=== PATIENT | male | born 1980 | race Two or more races ===

== ENCOUNTER 2019-06-06 22:23 | Emergency (ER) | payer MEDICARE, MEDICAID ==
[~2019-06-06] VITALS: Ht 165.1 cm; Wt 65.8 kg
[2019-06-07] MEDS ORDERED: ONDANSETRON HCL 4 MG/2 ML VIAL IV ONE (00:45)
[2019-06-07] MEDS ORDERED: HYDROmorphone HCL 2 MG/ML VL IV ONE (00:45)
[2019-06-07] MEDS ORDERED: SODIUM CHLORIDE 0.9% 1,000 ML IV ONE (01:45)
[2019-06-07 02:32] VITALS: BP 94/48
== END 2019-06-07 03:00 | disposition home or self-care (01) ==
LOC: EDBD 22:23 → ER 22:25
DX: R51 Headache (principal); I10 Essential (primary) hypertension; Z86.69 Personal history of other diseases of the nervous system and sense organs
CPT/HCPCS: 70450; 96374; 96375; 99284; J1170; J2405; J7030

== ENCOUNTER 2019-09-06 19:19 | Inpatient (IN) | payer MEDICARE, MEDICAID ==
[~2019-09-06] VITALS: Ht 162.6 cm; Wt 77.0 kg
[2019-09-06] MEDS ORDERED: SODIUM CHLORIDE 0.9% 1,000 ML IV ONE ×3 (19:53→23:15)
[2019-09-06] MEDS ORDERED: MORPHINE SULFATE 4 MG/ML SYR/VIAL IV ONE (20:00)
[2019-09-06] MEDS ORDERED: ONDANSETRON HCL 4 MG/2 ML VIAL IV ONE (20:00)
[2019-09-06 20:43] LABS: Urine Bacteria None Seen /hpf (None Seen)
[2019-09-06 20:51] LABS: Eosinophils # (auto) 0 10 ^3/uL (0-0.8); Mean Corpuscular Hemoglobin 34.7 pg (28.0-32.0); Mean Corpuscular Hgb Conc. 33.5 g/dL (32.0-36.0); Monocytes # (auto) 0.4 10 ^3/uL (0-1.3); Neutrophils # (auto) 10.4 10 ^3/uL (1.6-8.6)
[2019-09-06 20:53] LABS: Basophils # (auto) 0 10 ^3/uL (0-0.2); Basophils % (auto) 0.4 % (0.0-2.0); Hematocrit 42.9 % (41.0-53.0); Hemoglobin 14.4 g/dL (13.5-17.5); Lymphocytes # (auto) 0.5 10 ^3/uL (0.4-5.4); Lymphocytes % (auto) 4.3 % (10.0-50.0); Mean Corpuscular Volume 103.6 fL (80.0-100.0); Monocytes % (auto) 3.6 % (0.0-12.0); Neutrophils % (auto) 91.7 % (37.0-80.0); Platelet Count (auto) 439 10^3/uL (140-450); Red Blood Cells 4.14 10^6/uL (4.5-5.90); Red Cell Distribution Width 15.5 % (11.8-14.3); White Blood Cell 11.4 10^3/uL (4.4-10.8)
[2019-09-06 21:04] LABS: INR 1.02 (0.9-1.15); Partial Thromboplastin Time 27.6 sec (23.64-32.05)
[2019-09-06 21:08] LABS: Albumin 3.4 g/dL (3.4-5.0); Calcium 8.9 mg/dL (8.5-10.1); Potassium 3.8 mmol/L (3.5-5.1)
[2019-09-06 21:12] LABS: Bilirubin, Total 0.2 mg/dL (0.2-1.0); Total Protein 8.2 g/dL (6.4-8.2)
[2019-09-06] MEDS ORDERED: LORazepam 2MG/ML-1ML VIAL IV ONE (21:15)
[2019-09-06 21:19] LABS: Urine Blood 4+ /uL (Negative); Urine Specific Gravity 1.018 (1.001-1.035)
[2019-09-06 21:20] LABS: Urine WBC >100 /hpf (0 - 3)
[2019-09-06] MEDS ORDERED: MORPHINE SULF INJ 2 MG/ML SYRINGE 1ML IV ONE (22:30)
[2019-09-06] MEDS ORDERED: cefTRIAXone 1GM/50ML D5W 50 ML IV ONE (22:45)
[2019-09-06] MEDS ORDERED: PIPERACILLIN-TAZOB 3.375GM 100 ML IV ONE (23:15)
[2019-09-06 23:26] LABS: Lactic Acid w/Reflex 2.2 mmol/L (0.4-2.0)
[2019-09-07] MEDS ORDERED: SODIUM CHLORIDE 0.9% 1,000 ML IV SCH (02:10)
[2019-09-07] MEDS ORDERED: ACETAMINOPHEN 325 MG TAB PO PRN (02:15)
[2019-09-07] MEDS ORDERED: ONDANSETRON HCL 4 MG/2 ML VIAL IV PRN (02:15)
[2019-09-07] MEDS ORDERED: ACETAMINOPHEN 500 MG TAB PO PRN (02:15)
[2019-09-07] MEDS ORDERED: MORPHINE SULF INJ 2 MG/ML SYRINGE 1ML IV PRN ×2 (02:15→16:15)
[2019-09-07 03:39] VITALS: BP 94/42
[2019-09-07] MEDS ORDERED: ALBUTEROL SULF HFA 90MCG INH 200DOSE IN SCH (06:00)
[2019-09-07 06:07] VITALS: BP 81/52
--- NOTE | 2019-09-07 07:30 | NUR ---
ASSESSED PT FOR THE NEED OF MDI TX, PT SAYS HE DOES NOT TAKE BREATHING TX AT HOME, PT ON RA WITH SPO2 98%, HR 86, RR 15 WITH DIMINISHED/CLEAR BS NO SOB NOTED, NO DISTRESS NOTED. MDI DC. WILL CONTINUE TO MONITOR PT.
--- NOTE | 2019-09-07 07:44 | NUR ---
MAYCO HOLLAND REGARDING PATIENTS BLOOD PRESSURE OF 81/52. PATIENT ASYMPTOMATIC. AWAITING CALL BACK.
[2019-09-07] MEDS ORDERED: MID10T PO (07:45)
[2019-09-07] MEDS ORDERED: SODIUM CHLORIDE 0.9% 500 ML IV ONE (08:15)
--- NOTE | 2019-09-07 08:16 | NUR ---
SPOKE TO Santiago WHITE REGARDING PATIENT STATUS. INFORMED OF CHIEF COMPLAINT OF BLOOD IN URINE. INFORMED OF LOW BLOOD PRESSURE AND HOME MEDICATIONS. RECEIVED NEW ORDERS. TORB. SEE EMR.
[2019-09-07] MEDS ORDERED: MIDODRINE HCL 10 MG TAB PO ONE ×2 (08:30)
[2019-09-07] MEDS ORDERED: ASCORBIC ACID 1,000 MG TAB PO SCH (10:00)
[2019-09-07] MEDS ORDERED: DOXYCYCLINE 100MG/250ML 250 ML IV SCH (10:00)
[2019-09-07] MEDS ORDERED: ZINC SULFATE 220mg CAP or TAB PO SCH (10:00)
[2019-09-07] MEDS: ENOXAPARIN SOD 40 MG/0.4 ML SYRINGE SC SCH (10:00)
[2019-09-07] MEDS ORDERED: CHOLECALCIFEROL (VITD3) 1,000UNIT=25mCg TAB PO SCH (10:00)
--- NOTE | 2019-09-07 10:21 | NUR ---
PATIENT PLACED ON SCDS FOR DVT PROPHYLAXIS.
[2019-09-07 11:45] LABS: Basophils # (auto) 0 10 ^3/uL (0-0.2); Eosinophils # (auto) 0 10 ^3/uL (0-0.8); Eosinophils % (auto) 0.1 % (0.0-7.0); Monocytes # (auto) 0.6 10 ^3/uL (0-1.3); Neutrophils # (auto) 10.4 10 ^3/uL (1.6-8.6)
[2019-09-07] MEDS ORDERED: ENO30SY SC (11:45)
[2019-09-07] MEDS ORDERED: DOCU-94 PO (11:45)
[2019-09-07] MEDS ORDERED: POM ID (11:45)
[2019-09-07] MEDS ORDERED: TRAM50TA2 PO (11:45)
[2019-09-07 11:48] LABS: Basophils % (auto) 0.3 % (0.0-2.0); Hemoglobin 10.9 g/dL (13.5-17.5); Lymphocytes # (auto) 0.8 10 ^3/uL (0.4-5.4); Lymphocytes % (auto) 6.6 % (10.0-50.0); Mean Corpuscular Hemoglobin 34.1 pg (28.0-32.0); Mean Corpuscular Hgb Conc. 32.9 g/dL (32.0-36.0); Mean Corpuscular Volume 103.8 fL (80.0-100.0); Monocytes % (auto) 5.2 % (0.0-12.0); Neutrophils % (auto) 87.8 % (37.0-80.0); Platelet Count (auto) 330 10^3/uL (140-450); Red Blood Cells 3.18 10^6/uL (4.5-5.90); Red Cell Distribution Width 15.5 % (11.8-14.3); White Blood Cell 11.8 10^3/uL (4.4-10.8)
--- NOTE | 2019-09-07 11:56 | NUR ---
MAYCO LOUISE REGARDING DOXYCYCLINE.
[2019-09-07] MEDS: MIDODRINE HCL 10 MG TAB PO SCH ×2 (12:00→18:37)
[2019-09-07 12:06] LABS: Calcium 7.9 mg/dL (8.5-10.1); Potassium 3.7 mmol/L (3.5-5.1)
[2019-09-07 12:09] LABS: BUN/Creatinine Ratio 27.7
[2019-09-07 13:00] VITALS: BP 96/52
--- NOTE | 2019-09-07 14:55 | NUR ---
CLEAR YELLOW URINE EMPTIED FROM EARL CATHETER. 750ML.
--- NOTE | 2019-09-07 15:01 | NUR ---
MEATAL CARE PROVIDED WITH KIKA BLANCO AT BEDSIDE.
--- NOTE | 2019-09-07 15:38 | NUR ---
PATIENT TRANSPORTED TO ROOM 250B. PATIENT IN NO S/S OF DISTRESS. REPORT GIVEN TO KIKA STEELE.
--- NOTE | 2019-09-07 16:00 | NUR ---
Assumed care of patient, awake and alert. No S/S of distress/SOB or pain. Instructed on POC and to call for assist PRN, will continue to monitor for changes Q1hr and PRN.
[2019-09-07] MEDS ORDERED: cefTRIAXone 1GM/50ML D5W 50 ML IV ONE (16:15)
[2019-09-07 16:28] VITALS: BP 87/45
[2019-09-07] MEDS: SODIUM CHLORIDE 0.9% 1,000 ML IV SCH (18:38)
--- NOTE | 2019-09-07 19:30 | NUR ---
Opening Shift Note Assumed care of patient, awake and alert. No S/S of distress/SOB or pain. Mom coming in "for a few hours." Both pt and his mom insructed on POC and to call for assist PRN. RN will continue to monitor for changes Q1hr and PRN. Pt stating repeatedly that PIV in L AC irritating him. Pt rubbing over area proximal to insertion site. RN instructed pt and his mom that he should not do this as will irritate site and poss cause malfunction/dislodgment. Both VU. Bed low, call light at pt's side.
--- NOTE | 2019-09-07 19:59 | NUR ---
CARE ENDORSED TO KIKA CORTEZ. PT RESTING IN BED. DENIES PAIN OR SOB. VERBALIZED COMFORT.
[2019-09-07 21:17] VITALS: BP 102/53
[2019-09-07] MEDS: HYDROcodone-ACET 5/325MG TAB PO PRN (21:25)
--- NOTE | 2019-09-07 21:45 | NUR ---
Pt's mom leaving now repeatedly c/o pt's PIV needing to be discontinued and replaced as bleeding and 'leaking fluid.' Stopped at nurses' station to report she believes pt is allergic to tape over PIV site because he is allergic to 'some tapes.' This RN reassured pt's mom that no redness or rash appeared at site at beginning of shift. Reassured her team will take good care of her son and this RN will assess the PIV site and decide what to do.
--- NOTE | 2019-09-07 23:45 | NUR ---
PIV dc'd at LAC as leaking fluid and scant blood when flushed. IV cath removed in entirety; pt gold. well. Cath bent sharply at 90 degree angle. 22g cath used to start PIV in L posterior hand on 1st attempt. Pt apologizing for rubbing prev site. Now counting 1,2 over and over after RN asked if he needed someone to come in and hold his hand. Much praise awarded pt for his bravery and help by not moving. Pt repeatedly thanking RN.
[2019-09-08 04:43] VITALS: BP 94/54
[2019-09-08 05:43] LABS: Basophils # (auto) 0 10 ^3/uL (0-0.2); Eosinophils # (auto) 0.1 10 ^3/uL (0-0.8); Monocytes # (auto) 0.5 10 ^3/uL (0-1.3)
[2019-09-08 05:46] LABS: Basophils % (auto) 0.5 % (0.0-2.0); Hematocrit 32.4 % (41.0-53.0); Lymphocytes % (auto) 15.1 % (10.0-50.0); Mean Corpuscular Hemoglobin 35.1 pg (28.0-32.0); Mean Corpuscular Hgb Conc. 33.9 g/dL (32.0-36.0); Mean Corpuscular Volume 103.5 fL (80.0-100.0); Monocytes % (auto) 8.1 % (0.0-12.0); Neutrophils # (auto) 4.9 10 ^3/uL (1.6-8.6); Neutrophils % (auto) 75.3 % (37.0-80.0); Platelet Count (auto) 320 10^3/uL (140-450); Red Blood Cells 3.13 10^6/uL (4.5-5.90); Red Cell Distribution Width 15.6 % (11.8-14.3); White Blood Cell 6.5 10^3/uL (4.4-10.8)
[2019-09-08] MEDS: MIDODRINE HCL 10 MG TAB PO SCH ×3 (06:00→18:54)
[2019-09-08] MEDS: SODIUM CHLORIDE 0.9% 1,000 ML IV SCH ×2 (06:04→18:55)
[2019-09-08 06:08] LABS: Potassium 3.7 mmol/L (3.5-5.1)
[2019-09-08 06:20] LABS: Albumin 2.7 g/dL (3.4-5.0); BUN/Creatinine Ratio 24.6; Bilirubin, Total 0.3 mg/dL (0.2-1.0); Calcium 8.1 mg/dL (8.5-10.1); Total Protein 6.6 g/dL (6.4-8.2)
--- NOTE | 2019-09-08 07:25 | NUR ---
opening shift note assumed care of patient from NOC KIKA Mccallum. Patient is AOx4, no signs and symptoms of distress noted at this time. Bed is in lowest locked position, side rails up x3, and call light within reach. Updated patient on plan of care and patient verbalized understanding. I will continue to monitor q1hr and PRN.
[2019-09-08 09:00] VITALS: BP 91/51
[2019-09-08] MEDS: cefTRIAXone 1GM/50ML D5W 50 ML IV SCH (11:10)
[2019-09-08] MEDS: ENOXAPARIN SOD 40 MG/0.4 ML SYRINGE SC SCH (11:11)
[2019-09-08 12:39] VITALS: BP 101/65
[2019-09-08] MEDS: HYDROcodone-ACET 5/325MG TAB PO PRN (13:36)
[2019-09-08] MEDS: DOCUSATE SOD 100 MG CAP PO PRN (15:32)
--- NOTE | 2019-09-08 16:00 | NUR ---
Linen change Provided patient with bed bath and linen change. Patient tolerated well, no signs and symptoms of distress noted.
[2019-09-08 16:26] VITALS: BP 102/60
--- NOTE | 2019-09-08 19:25 | NUR ---
End of shift note Endorsed care to NOC KIKA Betts. No s/s of distress noted at this time.
--- NOTE | 2019-09-08 19:40 | NUR ---
Opening Shift Note Assumed care of patient, awake, AAOx4. Mother at bedside. No S/S of distress/SOB. On room air and bedbound. Bed in lowest locked position, side rails up x2, call light within reach. Instructed on POC and to call for assist PRN, will continue to monitor for changes Q1hr and PRN.
[2019-09-08 22:00] VITALS: BP 102/61
[2019-09-09 05:00] VITALS: BP 121/75
[2019-09-09] MEDS: MIDODRINE HCL 10 MG TAB PO SCH ×2 (05:35→13:08)
[2019-09-09 06:12] LABS: Basophils # (auto) 0 10 ^3/uL (0-0.2); Eosinophils # (auto) 0.1 10 ^3/uL (0-0.8); Eosinophils % (auto) 1.5 % (0.0-7.0); Hematocrit 33.5 % (41.0-53.0); Hemoglobin 11.6 g/dL (13.5-17.5); Lymphocytes % (auto) 22.3 % (10.0-50.0); Mean Corpuscular Hemoglobin 35.5 pg (28.0-32.0); Mean Corpuscular Hgb Conc. 34.5 g/dL (32.0-36.0); Mean Corpuscular Volume 102.8 fL (80.0-100.0); Monocytes # (auto) 0.5 10 ^3/uL (0-1.3); Monocytes % (auto) 10.5 % (0.0-12.0); Neutrophils # (auto) 2.9 10 ^3/uL (1.6-8.6); Neutrophils % (auto) 64.7 % (37.0-80.0); Nucleated Red Blood Cells % 0.1 %; Platelet Count (auto) 353 10^3/uL (140-450); Red Blood Cells 3.26 10^6/uL (4.5-5.90); Red Cell Distribution Width 15.5 % (11.8-14.3); White Blood Cell 4.5 10^3/uL (4.4-10.8)
--- NOTE | 2019-09-09 07:35 | NUR ---
opening shift note assumed care of patient from NOC RN Roxane Patient is AOx4, no signs and symptoms of distress noted at this time. Bed is in lowest locked position, side rails up x3, and call light within reach. Updated patient on plan of care and patient verbalized understanding. I will continue to monitor q1hr and PRN.
[2019-09-09 08:30] VITALS: BP 110/74
[2019-09-09] MEDS: cefTRIAXone 1GM/50ML D5W 50 ML IV SCH (09:54)
[2019-09-09] MEDS: SODIUM CHLORIDE 0.9% 1,000 ML IV SCH (10:09)
--- NOTE | 2019-09-09 11:15 | NUR ---
Physician rounding Dr. Gomes at bed side, updated her on patient status. New orders received, I will follow through.
[2019-09-09] MEDS ORDERED: LACTULOSE 20Gm/30ML SOLN PO ONE (12:15)
[2019-09-09 12:30] VITALS: BP 117/71
[2019-09-09] MEDS: DOCUSATE SOD 100 MG CAP PO PRN (13:09)
[2019-09-09] MEDS: ENOXAPARIN SOD 40 MG/0.4 ML SYRINGE SC SCH (13:10)
[2019-09-09] MEDS ORDERED: LEVO500T21 PO (14:44)
[2019-09-09 16:16] VITALS: BP 115/71
--- NOTE | 2019-09-09 16:30 | NUR ---
Assessment Patient is a 39-year-old male with mental disorder. Assessment was completed with patient mother Xena ). Per Xena patient has down syndrome and is disable. Per Xena prior to admission patient lived with her and functioned with assistance. Per Xena patient has a hospital bed and wheelchair for home used. Per Xena she helps patient with his ADLs. Per Xena patient will return home to his prior living arrangements post discharge and [facility] transportation needs to be arranged. Advised Xena there is a social service consult to resume service with home health agency. Per Xena patient is on service with [facility]. Informed Xena clinical information will be faxed to agency. Informed Xena she has the right to participate in all discharge planning. Xena verbalized understanding and agreed to discharge plan. Per Pastora with [facility] ) they will resume service within 24 upon d/c day. Faxed transportation form request to [facility] requesting for transportation to be arranged between 16:30-17:00 via [employer]. Received a follow up call from Sonam with [facility] advising me [email or web address] transportation [phone] will be transporting patient home between 18:00-20:00 via [employer]. Informed KIKA Copeland. Addendum: 09/09/19 at 1642 by TEJ MARI Amended: Links added.
[2019-09-09 17:08] VITALS: BP 153/73
--- NOTE | 2019-09-09 17:45 | NUR ---
discharge note Discharge instructions given as ordered. Encourage to follow up with PMD as instructed. All questions and concerns addressed. Patient verbalized understanding. IV removed with catheter intact, and pressure dressing applied. Telemetry unit returned to ICU. Patient taken via [employer] with all personal belongings, accompanied by family member. No distress noted at time of departure.
== END 2019-09-09 17:45 | disposition home health service (06) | DRG 698 ==
LOC: EDBD 19:19 → EDUNIT# 19:19 → ER 19:20 → TELE 19:21 → TELE-EAST 09-07 06:47
PROVIDERS: ADMIT Hospitalist; ATTEND Internal Medicine
DX: T83.091A Other mechanical complication of indwelling urethral catheter, initial encounter (principal); A41.9 Sepsis, unspecified organism; N39.0 Urinary tract infection, site not specified; G82.20 Paraplegia, unspecified; R33.9 Retention of urine, unspecified; E86.0 Dehydration; R31.0 Gross hematuria; I10 Essential (primary) hypertension; K56.41 Fecal impaction; K80.20 Calculus of gallbladder without cholecystitis without obstruction; N31.9 Neuromuscular dysfunction of bladder, unspecified; Q90.9 Down syndrome, unspecified; Z03.818 Encounter for observation for suspected exposure to other biological agents ruled out; Z82.49 Family history of ischemic heart disease and other diseases of the circulatory system; Z82.79 Family history of other congenital malformations, deformations and chromosomal abnormalities; Z85.47 Personal history of malignant neoplasm of testis; Z79.899 Other long term (current) drug therapy; Y84.6 Urinary catheterization as the cause of abnormal reaction of the patient, or of later complication, without mention of misadventure at the time of the procedure; Y92.89 Other specified places as the place of occurrence of the external cause; I95.9 Hypotension, unspecified
CPT/HCPCS: 36415; 71250; 74176; 80048; 80053; 81001; 82728; 83605; 83690; 83735; 84443; 85025; 85610; 85730; 87040; 87070; 87086; 87804; 87880; 93005; G0378; J0696; J2405; J2543

== ENCOUNTER 2020-08-08 23:21 | Emergency (ER) | payer MEDICARE, MEDICAID ==
[~2020-08-08] VITALS: Ht 165.1 cm; Wt 81.6 kg
[~2020-08-08 23:21] MED LIST: DOCU-94 PO; ENO30SY SC; LEVO500T31 PO; MID10T PO; POM ID; TRAM50TA2 PO
[2020-08-09 00:31] LABS: Basophils # (auto) 0.1 10 ^3/uL (0-0.2); Neutrophils # (auto) 3.1 10 ^3/uL (1.6-8.6)
[2020-08-09 00:33] LABS: Basophils % (auto) 1.3 % (0.0-2.0); Eosinophils # (auto) 0 10 ^3/uL (0-0.8); Eosinophils % (auto) 0.4 % (0.0-7.0); Hematocrit 38.9 % (41.0-53.0); Hemoglobin 13.7 g/dL (13.5-17.5); Lymphocytes # (auto) 1.4 10 ^3/uL (0.4-5.4); Mean Corpuscular Hemoglobin 35.8 pg (28.0-32.0); Mean Corpuscular Hgb Conc. 35.3 g/dL (32.0-36.0); Mean Corpuscular Volume 101.4 fL (80.0-100.0); Monocytes # (auto) 0.5 10 ^3/uL (0-1.3); Monocytes % (auto) 10.4 % (0.0-12.0); Neutrophils % (auto) 59.9 % (37.0-80.0); Red Blood Cells 3.83 10^6/uL (4.5-5.90); Red Cell Distribution Width 14.5 % (11.8-14.3); White Blood Cell 5.2 10^3/uL (4.4-10.8)
[2020-08-09 00:57] LABS: Albumin 3.4 g/dL (3.4-5.0); Anion Gap 8 (5-15); BUN/Creatinine Ratio 24.1; Blood Urea Nitrogen 20 mg/dL (7-18); Calcium 8.8 mg/dL (8.5-10.1); Carbon Dioxide 28 mmol/L (21-32); Chloride 103 mmol/L (98-107); GFR African American 133 mL/min; GFR Non-African American 110 mL/min; Glucose 103 mg/dL (74-106); Potassium 4.4 mmol/L (3.5-5.1); Sodium 139 mmol/L (136-145)
[2020-08-09] MEDS ORDERED: SODIUM CHLORIDE 0.9% 1,000 ML IV ONE ×2 (01:00→02:15)
[2020-08-09 01:02] LABS: Alanine Aminotransferase 48 U/L (16-61); Alkaline Phosphatase 95 U/L (45-117); Aspartate Aminotransferase 19 U/L (15-37); Bilirubin, Total 0.2 mg/dL (0.2-1.0); Total Protein 7.7 g/dL (6.4-8.2)
[2020-08-09 02:31] LABS: Urine Bacteria FEW /hpf (None Seen); Urine Blood Negative /uL (Negative); Urine Mucus FEW (None Seen); Urine Specific Gravity 1.018 (1.001-1.035); Urine WBC 63 /hpf (0 - 3)
[2020-08-09] MEDS ORDERED: SODIUM CHLORIDE 0.9% 500 ML IV ONE (04:00)
[2020-08-09] MEDS ORDERED: CIPROFLOXACIN 400MG/200ML 200 ML IV ONE (04:00)
[2020-08-09] MEDS ORDERED: NOREPINEPHRINE 8 MG/250ML KIT 250 ML IV SCH (04:00)
[2020-08-09] MEDS ORDERED: ACETAMINOPHEN 325 MG TAB PO ONE (05:45)
[2020-08-09 11:01] VITALS: BP 94/53
== END 2020-08-09 06:00 | disposition home or self-care (01) ==
LOC: EDBD 23:21 → EDSEX 23:21 → ER 23:22
DX: R07.9 Chest pain, unspecified (principal); N39.0 Urinary tract infection, site not specified; R00.1 Bradycardia, unspecified; I10 Essential (primary) hypertension; Z79.899 Other long term (current) drug therapy
CPT/HCPCS: 36415; 71045; 80053; 81001; 83605; 83880; 84484; 85025; 93005; 96361; 96365; 99285; J0744; J7030

== ENCOUNTER 2021-09-24 09:05 | Inpatient (IN) | payer MEDICARE, MEDICAID ==
[~2021-09-24] VITALS: Ht 160 cm; Wt 78.0 kg
[2021-09-24 10:24] LABS: Eosinophils # (auto) 0 10 ^3/uL (0-0.8); Mean Corpuscular Volume 104.3 fL (80.0-100.0); Neutrophils # (auto) 4.6 10 ^3/uL (1.6-8.6)
[2021-09-24 10:25] LABS: Basophils # (auto) 0.1 10 ^3/uL (0-0.2); Basophils % (auto) 0.8 % (0.0-2.0); Eosinophils % (auto) 0.3 % (0.0-7.0); Hematocrit 37.7 % (41.0-53.0); Hemoglobin 12.5 g/dL (13.5-17.5); Lymphocytes # (auto) 1.4 10 ^3/uL (0.4-5.4); Lymphocytes % (auto) 22.1 % (10.0-50.0); Mean Corpuscular Hemoglobin 34.7 pg (28.0-32.0); Mean Corpuscular Hgb Conc. 33.2 g/dL (32.0-36.0); Monocytes # (auto) 0.4 10 ^3/uL (0-1.3); Monocytes % (auto) 5.5 % (0.0-12.0); Neutrophils % (auto) 71.3 % (37.0-80.0); Nucleated Red Blood Cells % 0.1 %; Red Blood Cells 3.61 10^6/uL (4.5-5.90); Red Cell Distribution Width 14.7 % (11.8-14.3); White Blood Cell 6.4 10^3/uL (4.4-10.8)
[2021-09-24 10:38] LABS: Albumin 3.4 g/dL (3.4-5.0); BUN/Creatinine Ratio 23.3; Calcium 8.9 mg/dL (8.5-10.1); INR 1.01 (0.9-1.15); Partial Thromboplastin Time 33.4 sec (23.6-33.0); Potassium 3.7 mmol/L (3.5-5.1)
[2021-09-24 10:40] LABS: Bilirubin, Total 0.3 mg/dL (0.2-1.0); Total Protein 7.4 g/dL (6.4-8.2)
[2021-09-24] MEDS ORDERED: DEXTROSE (50%) 50ML SYRG IV PRN (14:45)
[2021-09-24] MEDS ORDERED: NITROGLYCERIN 0.4 MG SL TAB SL PRN (14:45)
[2021-09-24] MEDS ORDERED: D5W/LACTATED RINGERS 1,000 ML IV ONE (14:45)
[2021-09-24] MEDS ORDERED: PANTOPRAZOLE 40 MG/10 ML VIAL INJ IV ONE (14:45)
[2021-09-24] MEDS ORDERED: MORPHINE SULFATE INJ 2 MG/ml SYRG IV PRN (14:45)
[2021-09-24] MEDS ORDERED: ONDANSETRON HCL 4 MG/2 ML VIAL IV PRN (14:45)
[2021-09-24 14:57] LABS: Urine Bacteria FEW /hpf (None Seen); Urine Blood 3+ /uL (Negative); Urine WBC 1583 /hpf (0 - 3)
[2021-09-24] MEDS ORDERED: SODIUM CHLORIDE 0.9% 500 ML IV ONE (15:30)
[2021-09-24] MEDS: ACETAMINOPHEN 325 MG TAB PO PRN ×2 (15:41→16:54)
[2021-09-24 18:31] LABS: Folate (Folic Acid) 23.25 ng/mL (5.38-24)
[2021-09-24] MEDS: InsuLIN REG 1unit/0.01ml Soln (100units/ml) SC SCH (19:45)
[2021-09-24] MEDS: ACCU-CHEK COMFORT CURVE STRIP VI SCH (19:45)
[2021-09-24] MEDS: HYDROcodone-ACET 5/325MG TAB PO PRN (21:32)
[2021-09-24] MEDS: SODIUM CHLOR 0.9% PF (SALINE LOCK) 10ML VIAL/SYR IV SCH (22:11)
[2021-09-25] MEDS: ACETAMINOPHEN 325 MG TAB PO PRN ×3 (00:38→21:01)
[2021-09-25 05:32] VITALS: BP 67/29
[2021-09-25] MEDS ORDERED: SODIUM CHLORIDE 0.9% 500 ML IV ONE (05:45)
[2021-09-25] MEDS: InsuLIN REG 1unit/0.01ml Soln (100units/ml) SC SCH ×4 (06:00→17:32)
[2021-09-25] MEDS: SODIUM CHLOR 0.9% PF (SALINE LOCK) 10ML VIAL/SYR IV SCH ×2 (06:43→13:30)
[2021-09-25] MEDS: ACCU-CHEK COMFORT CURVE STRIP VI SCH ×4 (06:48→17:30)
[2021-09-25 07:51] LABS: Basophils # (auto) 0 10 ^3/uL (0-0.2); Eosinophils # (auto) 0 10 ^3/uL (0-0.8); Eosinophils % (auto) 0.1 % (0.0-7.0); Lymphocytes # (auto) 0.8 10 ^3/uL (0.4-5.4); Monocytes # (auto) 0.4 10 ^3/uL (0-1.3)
[2021-09-25 07:54] LABS: Basophils % (auto) 0.2 % (0.0-2.0); Hematocrit 30.4 % (41.0-53.0); Hemoglobin 10.4 g/dL (13.5-17.5); Lymphocytes % (auto) 8.9 % (10.0-50.0); Mean Corpuscular Hemoglobin 35.4 pg (28.0-32.0); Mean Corpuscular Hgb Conc. 34.3 g/dL (32.0-36.0); Mean Corpuscular Volume 103.3 fL (80.0-100.0); Neutrophils # (auto) 7.3 10 ^3/uL (1.6-8.6); Neutrophils % (auto) 85.8 % (37.0-80.0); Nucleated Red Blood Cells % 0.1 %; Red Blood Cells 2.95 10^6/uL (4.5-5.90); Red Cell Distribution Width 14.7 % (11.8-14.3); White Blood Cell 8.5 10^3/uL (4.4-10.8)
[2021-09-25 07:55] VITALS: BP 83/30
[2021-09-25 07:57] LABS: Calcium 8.2 mg/dL (8.5-10.1); Potassium 5.1 mmol/L (3.5-5.1)
[2021-09-25 08:30] VITALS: BP 83/30
[2021-09-25] MEDS ORDERED: ACET300T2 PO (08:39)
[2021-09-25] MEDS ORDERED: MIDO10TA2 PO (08:39)
[2021-09-25] MEDS ORDERED: [UNRECOGNIZED DRUG - CODE] EX (08:39)
[2021-09-25] MEDS ORDERED: ACET-1156 PO (08:39)
[2021-09-25] MEDS ORDERED: ENO100SY SC (08:39)
[2021-09-25] MEDS ORDERED: PANT40TA2 PO (08:39)
[2021-09-25] MEDS ORDERED: DOCU250C4 PO (08:39)
[2021-09-25] MEDS ORDERED: SODIUM CHLORIDE 0.9% 1,000 ML IV ONE (11:30)
[2021-09-25] MEDS ORDERED: cefTRIAXone 1GM/50ML D5W 50 ML IV ONE (11:30)
[2021-09-25 12:05] VITALS: BP_SYST 174; BP_SYST 69; BP_DIAS 41; BP_DIAS 87
[2021-09-25] MEDS: SODIUM CHLORIDE 0.9% 1,000 ML IV SCH (14:00)
[2021-09-25 14:13] LABS: Hemoglobin 9.3 g/dL (13.5-17.5)
[2021-09-25 14:16] LABS: Hematocrit 27.8 % (41.0-53.0)
[2021-09-25 16:23] VITALS: BP 85/49
[2021-09-25] MEDS: HYDROcodone-ACET 5/325MG TAB PO PRN (17:10)
[2021-09-25] MEDS: DOCUSATE SOD 100 MG CAP PO PRN (21:00)
[2021-09-25 22:00] VITALS: BP 71/39
[2021-09-26] MEDS: SODIUM CHLORIDE 0.9% 1,000 ML IV SCH ×5 (03:05→20:06)
[2021-09-26] MEDS: SODIUM CHLOR 0.9% PF (SALINE LOCK) 10ML VIAL/SYR IV SCH ×4 (05:37→21:20)
[2021-09-26] MEDS: InsuLIN REG 1unit/0.01ml Soln (100units/ml) SC SCH ×4 (05:59→18:00)
[2021-09-26] MEDS: ACCU-CHEK COMFORT CURVE STRIP VI SCH ×4 (05:59→19:03)
[2021-09-26 06:13] LABS: Basophils # (auto) 0 10 ^3/uL (0-0.2); Basophils % (auto) 0.5 % (0.0-2.0); Eosinophils # (auto) 0 10 ^3/uL (0-0.8); Eosinophils % (auto) 0.3 % (0.0-7.0); Hemoglobin 8.6 g/dL (13.5-17.5); Monocytes # (auto) 0.4 10 ^3/uL (0-1.3)
[2021-09-26 06:15] LABS: Hematocrit 25.7 % (41.0-53.0); Lymphocytes % (auto) 13.8 % (10.0-50.0); Mean Corpuscular Hemoglobin 34.6 pg (28.0-32.0); Mean Corpuscular Hgb Conc. 33.5 g/dL (32.0-36.0); Mean Corpuscular Volume 103.3 fL (80.0-100.0); Monocytes % (auto) 5.8 % (0.0-12.0); Neutrophils # (auto) 5.6 10 ^3/uL (1.6-8.6); Neutrophils % (auto) 79.6 % (37.0-80.0); Red Blood Cells 2.49 10^6/uL (4.5-5.90); Red Cell Distribution Width 14.6 % (11.8-14.3)
[2021-09-26 06:33] LABS: Chloride 112 mmol/L (98-107); Potassium 4.2 mmol/L (3.5-5.1); Sodium 141 mmol/L (136-145)
[2021-09-26 06:45] LABS: Alanine Aminotransferase 32 U/L (16-61); Albumin 2.6 g/dL (3.4-5.0); Alkaline Phosphatase 68 U/L (45-117); Anion Gap 5 (5-15); Aspartate Aminotransferase 15 U/L (15-37); BUN/Creatinine Ratio 20.8; Bilirubin, Total < 0.1 mg/dL (0.2-1.0); Blood Urea Nitrogen 11 mg/dL (7-18); Calcium 7.7 mg/dL (8.5-10.1); Carbon Dioxide 24 mmol/L (21-32); GFR African American 221 mL/min; GFR Non-African American 183 mL/min; Glucose 100 mg/dL (74-106); Total Protein 6.2 g/dL (6.4-8.2)
[2021-09-26 06:51] LABS: INR 1.05 (0.9-1.15); Partial Thromboplastin Time 27.8 sec (23.6-33.0)
[2021-09-26 08:05] VITALS: BP 85/48
[2021-09-26] MEDS: cefTRIAXone 1GM/50ML D5W 50 ML IV SCH (11:26)
[2021-09-26 12:05] VITALS: BP 75/41
[2021-09-26] MEDS: ACETAMINOPHEN 325 MG TAB PO PRN ×2 (15:13→21:20)
[2021-09-26 16:00] VITALS: BP 74/40
[2021-09-26] MEDS ORDERED: MIDODRINE HCL 10 MG TAB PO ONE (19:45)
[2021-09-26] MEDS: DOCUSATE SOD 100 MG CAP PO PRN (21:21)
[2021-09-26 22:00] VITALS: BP 72/35
[2021-09-27] MEDS: SODIUM CHLORIDE 0.9% 1,000 ML IV SCH ×3 (02:36→19:41)
[2021-09-27 05:00] VITALS: BP 160/66
[2021-09-27 05:19] LABS: Basophils # (auto) 0 10 ^3/uL (0-0.2); Basophils % (auto) 0.9 % (0.0-2.0); Eosinophils # (auto) 0.1 10 ^3/uL (0-0.8); Lymphocytes # (auto) 1.3 10 ^3/uL (0.4-5.4); Lymphocytes % (auto) 24.7 % (10.0-50.0); Monocytes # (auto) 0.4 10 ^3/uL (0-1.3); Neutrophils # (auto) 3.5 10 ^3/uL (1.6-8.6); Red Cell Distribution Width 14.5 % (11.8-14.3); White Blood Cell 5.4 10^3/uL (4.4-10.8)
[2021-09-27 05:22] LABS: Eosinophils % (auto) 2.1 % (0.0-7.0); Hematocrit 23.7 % (41.0-53.0); Hemoglobin 7.9 g/dL (13.5-17.5); Mean Corpuscular Hemoglobin 34.5 pg (28.0-32.0); Mean Corpuscular Hgb Conc. 33.5 g/dL (32.0-36.0); Mean Corpuscular Volume 102.8 fL (80.0-100.0); Monocytes % (auto) 7.8 % (0.0-12.0); Neutrophils % (auto) 64.5 % (37.0-80.0); Nucleated Red Blood Cells % 0.1 %
[2021-09-27] MEDS: MIDODRINE HCL 10 MG TAB PO SCH ×3 (05:47→18:00)
[2021-09-27] MEDS: SODIUM CHLOR 0.9% PF (SALINE LOCK) 10ML VIAL/SYR IV SCH ×3 (05:47→22:12)
[2021-09-27 09:00] VITALS: BP 117/56
[2021-09-27] MEDS: cefTRIAXone 1GM/50ML D5W 50 ML IV SCH (10:38)
[2021-09-27] MEDS ORDERED: BISA10SU52 PR (11:02)
[2021-09-27 13:00] VITALS: BP 92/50
[2021-09-27] MEDS: ACETAMINOPHEN 325 MG TAB PO PRN (15:24)
[2021-09-27] MEDS ORDERED: GLYCOPYRROLATE 0.2 MG/ML 1ML VIAL IV ONE (15:54)
[2021-09-27] MEDS ORDERED: ePHEDrine SULFATE 50 MG/ML AMP IV ONE (15:54)
[2021-09-27] MEDS ORDERED: fentaNYL CITRATE 100 MCG/2 ML VL ONE (16:39)
[2021-09-27] MEDS ORDERED: MIDAZOLAM HCL 2MG/2ML 2ml VIAL (1mg/ml) ONE (16:39)
[2021-09-27] MEDS ORDERED: LIDOCAINE 1%-Mpf/Epinephrine 1:200,000 ONE (16:41)
[2021-09-27] MEDS ORDERED: DexAMETHasone SOD PHOS 10MG/1ML VIAL INJ ONE (16:59)
[2021-09-27] MEDS ORDERED: LABETALOL HCL 5 MG/ML 4ML SYRINGE IV PRN (17:00)
[2021-09-27] MEDS ORDERED: MIDAZOLAM HCL 2MG/2ML 2ml VIAL (1mg/ml) IV PRN (17:00)
[2021-09-27] MEDS ORDERED: ONDANSETRON HCL 4 MG/2 ML VIAL IV PRN (17:00)
[2021-09-27] MEDS ORDERED: ePHEDrine SULFATE 50 MG/ML AMP IV PRN (17:00)
[2021-09-27] MEDS ORDERED: MORPHINE SULFATE 4 MG/ML SYR/VIAL IV PRN (17:00)
[2021-09-27] MEDS ORDERED: PROPOFOL 10 MG/ML 20 ML IV ONE (18:36)
[2021-09-27 21:50] VITALS: BP 100/44
[2021-09-27] MEDS: DOCUSATE SOD 100 MG CAP PO PRN (23:28)
[2021-09-28] MEDS: SODIUM CHLORIDE 0.9% 1,000 ML IV SCH ×3 (01:55→15:05)
[2021-09-28 04:50] VITALS: BP 89/47
[2021-09-28] MEDS: SODIUM CHLOR 0.9% PF (SALINE LOCK) 10ML VIAL/SYR IV SCH ×2 (05:01→13:19)
[2021-09-28] MEDS: MIDODRINE HCL 10 MG TAB PO SCH ×3 (05:01→17:29)
[2021-09-28 05:32] VITALS: BP 93/45
[2021-09-28 06:41] LABS: Basophils # (auto) 0 10 ^3/uL (0-0.2); Eosinophils # (auto) 0 10 ^3/uL (0-0.8); Lymphocytes # (auto) 0.6 10 ^3/uL (0.4-5.4); Monocytes # (auto) 0.1 10 ^3/uL (0-1.3); Nucleated Red Blood Cells % 0.1 %; Red Blood Cells 2.33 10^6/uL (4.5-5.90); Red Cell Distribution Width 14.6 % (11.8-14.3); White Blood Cell 7.4 10^3/uL (4.4-10.8)
[2021-09-28 06:45] LABS: Hematocrit 23.8 % (41.0-53.0); Hemoglobin 8.2 g/dL (13.5-17.5); Lymphocytes % (auto) 8.4 % (10.0-50.0); Mean Corpuscular Hemoglobin 35.3 pg (28.0-32.0); Mean Corpuscular Hgb Conc. 34.4 g/dL (32.0-36.0); Mean Corpuscular Volume 102.5 fL (80.0-100.0); Monocytes % (auto) 1.2 % (0.0-12.0); Neutrophils # (auto) 6.7 10 ^3/uL (1.6-8.6); Neutrophils % (auto) 90.4 % (37.0-80.0)
[2021-09-28 08:36] VITALS: BP 98/52
[2021-09-28] MEDS: cefTRIAXone 1GM/50ML D5W 50 ML IV SCH (09:48)
[2021-09-28 13:00] VITALS: BP_SYST 102; BP_SYST 98; BP_DIAS 50; BP_DIAS 52
[2021-09-28 16:35] VITALS: BP 101/57
[2021-09-28] MEDS: ACETAMINOPHEN 325 MG TAB PO PRN (17:34)
== END 2021-09-28 18:57 | disposition home health service (06) | DRG 669 ==
LOC: ER 09:05 → EDBD 09:05 → TELE 14:49 → TELE-WESTW 09-25 05:05
PROVIDERS: ADMIT Internal Medicine; ATTEND Family Medicine
PROC: 0TBB8ZZ Excision of Bladder, Via Natural or Artificial Opening Endoscopic (ICD-10-PCS; 2021-09-27)
PROC: 0T9B30Z Drainage of Bladder with Drainage Device, Percutaneous Approach (ICD-10-PCS; 2021-09-27)
PROC: 0TCB8ZZ Extirpation of Matter from Bladder, Via Natural or Artificial Opening Endoscopic (ICD-10-PCS; principal; 2021-09-27 16:52)
DX: N31.9 Neuromuscular dysfunction of bladder, unspecified (principal); N39.0 Urinary tract infection, site not specified; D62 Acute posthemorrhagic anemia; F84.0 Autistic disorder; G82.20 Paraplegia, unspecified; E44.0 Moderate protein-calorie malnutrition; R31.0 Gross hematuria; R00.1 Bradycardia, unspecified; Z20.822 Contact with and (suspected) exposure to COVID-19; I10 Essential (primary) hypertension; Q90.9 Down syndrome, unspecified; Z82.49 Family history of ischemic heart disease and other diseases of the circulatory system; Z85.47 Personal history of malignant neoplasm of testis; Z74.01 Bed confinement status; Z68.30 Body mass index [BMI] 30.0-30.9, adult
CPT/HCPCS: 36415; 74176; 80048; 80053; 81001; 82607; 82746; 82962; 84484; 85014; 85018; 85025; 85610; 85730; 86850; 86900; 86901; 87086; 93005; 96361; 96365; C9113; G0378; J0696; J1100; J2250; J2405; J2704

== ENCOUNTER 2021-10-05 17:15 | Inpatient (IN) | payer MEDICARE, MEDICAID ==
[~2021-10-05] VITALS: Ht 154.9 cm; Wt 73.7 kg
[~2021-10-05 17:15] MED LIST changes: +ACET-1156 PO; +ACET300T2 PO; +BISA10SU52 PR; -DOCU-94 PO; +DOCU250C4 PO; +ENO100SY SC; -ENO30SY SC; -LEVO500T31 PO; -MID10T PO; +MIDO10TA2 PO; +PANT40TA2 PO; -POM ID; -TRAM50TA2 PO; +[UNRECOGNIZED DRUG - CODE] EX
[2021-10-05 19:19] LABS: Basophils # (auto) 0.1 10 ^3/uL (0-0.2); Basophils % (auto) 1.6 % (0.0-2.0); Eosinophils # (auto) 0 10 ^3/uL (0-0.8); Eosinophils % (auto) 0.7 % (0.0-7.0); Hematocrit 29.6 % (41.0-53.0); Hemoglobin 9.8 g/dL (13.5-17.5); Lymphocytes # (auto) 1.2 10 ^3/uL (0.4-5.4); Lymphocytes % (auto) 27.2 % (10.0-50.0); Mean Corpuscular Hgb Conc. 33.3 g/dL (32.0-36.0); Mean Corpuscular Volume 102.4 fL (80.0-100.0); Monocytes # (auto) 0.4 10 ^3/uL (0-1.3); Neutrophils # (auto) 2.8 10 ^3/uL (1.6-8.6); Neutrophils % (auto) 62.5 % (37.0-80.0); Nucleated Red Blood Cells % 0.1 %; Red Blood Cells 2.89 10^6/uL (4.5-5.90); Red Cell Distribution Width 14.9 % (11.8-14.3); White Blood Cell 4.4 10^3/uL (4.4-10.8)
[2021-10-05 19:41] LABS: Partial Thromboplastin Time 28.9 sec (23.6-33.0)
[2021-10-05 19:47] LABS: Albumin 3.2 g/dL (3.4-5.0); Calcium 8.6 mg/dL (8.5-10.1); Potassium 4.2 mmol/L (3.5-5.1)
[2021-10-05 19:51] LABS: BUN/Creatinine Ratio 25.6; Bilirubin, Total 0.2 mg/dL (0.2-1.0)
[2021-10-05] MEDS ORDERED: cefTRIAXone 1GM/50ML D5W 50 ML IV ONE (22:15)
[2021-10-05] MEDS ORDERED: MIDODRINE HCL 10 MG TAB PO ONE (22:30)
[2021-10-06] MEDS ORDERED: ACETAMINOPHEN 325 MG TAB PO ONE (00:45)
[2021-10-06] MEDS ORDERED: ONDANSETRON HCL 4 MG/2 ML VIAL IV ONE (00:45)
[2021-10-06] MEDS: SODIUM CHLORIDE 0.9% 1,000 ML IV SCH (06:30)
[2021-10-06 07:16] LABS: Calcium 8.8 mg/dL (8.5-10.1); Potassium 4.1 mmol/L (3.5-5.1)
[2021-10-06 07:19] LABS: BUN/Creatinine Ratio 23.2
[2021-10-06 07:31] LABS: Basophils # (auto) 0.1 10 ^3/uL (0-0.2); Basophils % (auto) 1.8 % (0.0-2.0); Eosinophils # (auto) 0 10 ^3/uL (0-0.8); Eosinophils % (auto) 0.8 % (0.0-7.0); Hematocrit 29.8 % (41.0-53.0); Hemoglobin 9.8 g/dL (13.5-17.5); Lymphocytes # (auto) 1.6 10 ^3/uL (0.4-5.4); Lymphocytes % (auto) 29.7 % (10.0-50.0); Mean Corpuscular Hemoglobin 33.6 pg (28.0-32.0); Mean Corpuscular Hgb Conc. 32.8 g/dL (32.0-36.0); Mean Corpuscular Volume 102.4 fL (80.0-100.0); Monocytes # (auto) 0.4 10 ^3/uL (0-1.3); Monocytes % (auto) 7.2 % (0.0-12.0); Neutrophils # (auto) 3.3 10 ^3/uL (1.6-8.6); Neutrophils % (auto) 60.5 % (37.0-80.0); Nucleated Red Blood Cells % 0.1 %; Red Blood Cells 2.91 10^6/uL (4.5-5.90); Red Cell Distribution Width 14.9 % (11.8-14.3); White Blood Cell 5.4 10^3/uL (4.4-10.8)
[2021-10-06] MEDS: ACETAMINOPHEN 325 MG TAB PO PRN ×2 (17:08→23:10)
[2021-10-06 22:00] VITALS: BP 83/41
[2021-10-06] MEDS ORDERED: SODIUM CHLORIDE 0.9% 1,000 ML IV ONE (22:00)
[2021-10-06] MEDS: MIDODRINE HCL 10 MG TAB PO SCH (23:00)
[2021-10-07] MEDS: SODIUM CHLORIDE 0.9% 1,000 ML IV SCH ×2 (02:19→08:23)
[2021-10-07 05:00] VITALS: BP 88/53
[2021-10-07] MEDS: MIDODRINE HCL 10 MG TAB PO SCH ×3 (06:51→17:33)
[2021-10-07 09:00] VITALS: BP 100/50
[2021-10-07] MEDS: ACETAMINOPHEN 325 MG TAB PO PRN ×2 (11:23→20:02)
[2021-10-07 13:00] VITALS: BP 87/52
[2021-10-07 16:41] VITALS: BP 83/58
[2021-10-07 20:35] VITALS: BP 92/54
== END 2021-10-07 20:45 | disposition home or self-care (01) | DRG 696 ==
LOC: EDBD 17:15 → ER 17:15 → OVERFLOW 10-06 05:53 → CENTRAL 10-06 18:20
PROVIDERS: ADMIT Registered Nurse; ATTEND Family Medicine
DX: R31.0 Gross hematuria (principal); D62 Acute posthemorrhagic anemia; G82.20 Paraplegia, unspecified; N31.9 Neuromuscular dysfunction of bladder, unspecified; Z20.822 Contact with and (suspected) exposure to COVID-19; I10 Essential (primary) hypertension; Z85.47 Personal history of malignant neoplasm of testis; Q90.9 Down syndrome, unspecified
CPT/HCPCS: 36415; 71045; 74176; 80048; 80053; 80061; 83036; 84484; 85025; 85610; 85730; 87081; 96365; 96375; G0378; J0696; J2405

== ENCOUNTER 2021-10-08 16:27 | Inpatient (IN) | payer MEDICARE, MEDICAID ==
[~2021-10-08] VITALS: Ht 160 cm; Wt 76.3 kg
[2021-10-08] MEDS ORDERED: IOHEXOL 350 MG/ML 100ML IJ ONE (16:56)
[2021-10-08] MEDS ORDERED: ENOXAPARIN SOD 100 MG/1 ML SYRINGE SC ONE (17:45)
[2021-10-08 17:48] LABS: Basophils # (auto) 0.1 10 ^3/uL (0-0.2); Eosinophils # (auto) 0 10 ^3/uL (0-0.8); Monocytes # (auto) 0.4 10 ^3/uL (0-1.3); White Blood Cell 7.2 10^3/uL (4.4-10.8)
[2021-10-08 17:50] LABS: Basophils % (auto) 0.9 % (0.0-2.0); Eosinophils % (auto) 0.1 % (0.0-7.0); Hematocrit 28.8 % (41.0-53.0); Hemoglobin 9.7 g/dL (13.5-17.5); Lymphocytes % (auto) 13.7 % (10.0-50.0); Mean Corpuscular Hemoglobin 34.5 pg (28.0-32.0); Mean Corpuscular Hgb Conc. 33.7 g/dL (32.0-36.0); Mean Corpuscular Volume 102.4 fL (80.0-100.0); Monocytes % (auto) 5.9 % (0.0-12.0); Neutrophils # (auto) 5.7 10 ^3/uL (1.6-8.6); Neutrophils % (auto) 79.4 % (37.0-80.0); Red Blood Cells 2.81 10^6/uL (4.5-5.90); Red Cell Distribution Width 14.9 % (11.8-14.3)
[2021-10-08] MEDS ORDERED: SODIUM CHLORIDE 0.9% 500 ML IV ONE ×2 (18:00→20:15)
[2021-10-08 18:15] LABS: Albumin 2.8 g/dL (3.4-5.0); Calcium 8.2 mg/dL (8.5-10.1); Magnesium 2.2 mg/dL (1.6-2.6); Potassium 3.8 mmol/L (3.5-5.1)
[2021-10-08 18:21] LABS: BUN/Creatinine Ratio 16.7; Bilirubin, Total 0.2 mg/dL (0.2-1.0)
[2021-10-08] MEDS ORDERED: ACETAMINOPHEN 325 MG TAB PO ONE (18:30)
[2021-10-08] MEDS ORDERED: DOCUSATE SOD 100 MG CAP PO PRN (22:30)
[2021-10-08] MEDS ORDERED: ALBUMIN 25% 100 ML IV ONE (22:30)
[2021-10-08] MEDS: SODIUM CHLORIDE 0.9% 1,000 ML IV SCH (22:51)
[2021-10-09] MEDS ORDERED: MORPHINE SULFATE INJ 2 MG/ml SYRG IV PRN
[2021-10-09] MEDS ORDERED: NITROGLYCERIN 0.4 MG SL TAB SL PRN
[2021-10-09] MEDS: ACETAMINOPHEN 325 MG TAB PO PRN ×3 (00:16→21:55)
[2021-10-09] MEDS ORDERED: SODIUM CHLORIDE 0.9% 500 ML IV ONE ×2 (00:30→21:45)
[2021-10-09] MEDS ORDERED: ALBUMIN 25% 100 ML IV ONE (00:30)
[2021-10-09 07:38] LABS: Basophils # (auto) 0.1 10 ^3/uL (0-0.2); Eosinophils # (auto) 0 10 ^3/uL (0-0.8); Eosinophils % (auto) 0.2 % (0.0-7.0); Neutrophils # (auto) 4.5 10 ^3/uL (1.6-8.6)
[2021-10-09 07:41] LABS: Basophils % (auto) 0.9 % (0.0-2.0); Hematocrit 24.5 % (41.0-53.0); Hemoglobin 8.1 g/dL (13.5-17.5); Lymphocytes % (auto) 17.1 % (10.0-50.0); Mean Corpuscular Hemoglobin 34.3 pg (28.0-32.0); Mean Corpuscular Hgb Conc. 33.2 g/dL (32.0-36.0); Mean Corpuscular Volume 103.4 fL (80.0-100.0); Monocytes # (auto) 0.4 10 ^3/uL (0-1.3); Monocytes % (auto) 6.3 % (0.0-12.0); Neutrophils % (auto) 75.5 % (37.0-80.0); Nucleated Red Blood Cells % 0.1 %; Red Blood Cells 2.37 10^6/uL (4.5-5.90)
[2021-10-09 07:57] LABS: Albumin 3.5 g/dL (3.4-5.0); BUN/Creatinine Ratio 13.9; Calcium 7.9 mg/dL (8.5-10.1); Potassium 4.1 mmol/L (3.5-5.1)
[2021-10-09 07:59] LABS: Bilirubin, Total 0.4 mg/dL (0.2-1.0); Total Protein 6.7 g/dL (6.4-8.2)
[2021-10-09] MEDS: MULTIPLE VITAMIN TAB PO SCH (09:58)
[2021-10-09] MEDS: ASPirin 81 mg TAB PO SCH (09:58)
[2021-10-09] MEDS: FAMOTIDINE (10MG/ML) 2ML VL IV SCH ×2 (09:59→22:03)
[2021-10-09] MEDS: ENOXAPARIN SOD 80 MG/0.8ML SYRINGE SC SCH ×2 (13:09→22:03)
[2021-10-09] MEDS: SODIUM CHLORIDE 0.9% 1,000 ML IV SCH ×2 (15:10→23:50)
[2021-10-09] MEDS ORDERED: ENOXAPARIN SOD 80 MG/0.8ML SYRINGE SC SCH (18:00)
[2021-10-09] MEDS ORDERED: MIDODRINE HCL 10 MG TAB PO ONE (21:45)
[2021-10-10] VITALS (35 sets, daily range): BP systolic 70–120; BP diastolic 37–70
[2021-10-10 09:16] LABS: Basophils # (auto) 0.1 10 ^3/uL (0-0.2); Eosinophils # (auto) 0 10 ^3/uL (0-0.8); Eosinophils % (auto) 0.4 % (0.0-7.0); Hematocrit 27.4 % (41.0-53.0); Hemoglobin 8.9 g/dL (13.5-17.5); Lymphocytes # (auto) 1.3 10 ^3/uL (0.4-5.4); Monocytes # (auto) 0.4 10 ^3/uL (0-1.3); Red Cell Distribution Width 15.4 % (11.8-14.3); White Blood Cell 6.8 10^3/uL (4.4-10.8)
[2021-10-10 09:17] LABS: Lymphocytes % (auto) 19.2 % (10.0-50.0); Mean Corpuscular Hemoglobin 33.8 pg (28.0-32.0); Mean Corpuscular Hgb Conc. 32.4 g/dL (32.0-36.0); Mean Corpuscular Volume 104.3 fL (80.0-100.0); Monocytes % (auto) 5.3 % (0.0-12.0); Neutrophils % (auto) 74.1 % (37.0-80.0); Red Blood Cells 2.63 10^6/uL (4.5-5.90)
[2021-10-10] MEDS: FAMOTIDINE (10MG/ML) 2ML VL IV SCH ×2 (09:37→22:10)
[2021-10-10] MEDS: ENOXAPARIN SOD 80 MG/0.8ML SYRINGE SC SCH (09:37)
[2021-10-10] MEDS: ASPirin 81 mg TAB PO SCH (09:37)
[2021-10-10] MEDS: MULTIPLE VITAMIN TAB PO SCH (09:37)
[2021-10-10 14:24] LABS: BUN/Creatinine Ratio 17.1; Calcium 8.2 mg/dL (8.5-10.1); Potassium 4.3 mmol/L (3.5-5.1)
[2021-10-10 14:27] LABS: Bilirubin, Total 0.2 mg/dL (0.2-1.0); Total Protein 6.7 g/dL (6.4-8.2)
[2021-10-10 14:30] LABS: Basophils # (auto) 0.1 10 ^3/uL (0-0.2); Eosinophils # (auto) 0 10 ^3/uL (0-0.8); Eosinophils % (auto) 0.3 % (0.0-7.0)
[2021-10-10 14:33] LABS: Basophils % (auto) 0.9 % (0.0-2.0); Hematocrit 27.1 % (41.0-53.0); Lymphocytes # (auto) 1.1 10 ^3/uL (0.4-5.4); Lymphocytes % (auto) 15.4 % (10.0-50.0); Mean Corpuscular Hemoglobin 34.4 pg (28.0-32.0); Mean Corpuscular Hgb Conc. 33.2 g/dL (32.0-36.0); Mean Corpuscular Volume 103.6 fL (80.0-100.0); Monocytes # (auto) 0.5 10 ^3/uL (0-1.3); Monocytes % (auto) 6.6 % (0.0-12.0); Neutrophils # (auto) 5.3 10 ^3/uL (1.6-8.6); Neutrophils % (auto) 76.8 % (37.0-80.0); Nucleated Red Blood Cells % 0.1 %; Red Blood Cells 2.62 10^6/uL (4.5-5.90); Red Cell Distribution Width 15.2 % (11.8-14.3); White Blood Cell 6.8 10^3/uL (4.4-10.8)
[2021-10-10] MEDS ORDERED: IODIXANOL 320MG/ML 100ML BTL IV ONE (14:53)
[2021-10-10] MEDS ORDERED: fentaNYL CITRATE 100 MCG/2 ML VL ONE (15:03)
[2021-10-10] MEDS ORDERED: MIDAZOLAM HCL 2MG/2ML 2ml VIAL (1mg/ml) ONE (15:04)
[2021-10-10] MEDS ORDERED: LIDOCAINE 2%HCL (LOCAL ANESTH.) INJ 10ml MDV ONE (15:07)
[2021-10-10] MEDS ORDERED: HEPARIN SODIUM (PORCINE) 5000 UNITS/ML 1ML VIAL IV ONE ×2 (15:15→15:30)
[2021-10-10] MEDS ORDERED: HEPARIN SODIUM (PORCINE) 5000 UNITS/ML 1ML VIAL ONE (15:25)
[2021-10-10] MEDS ORDERED: HEPARIN DRIP/D5W 100UNITS/ML 250 ML IV ONE (15:26)
[2021-10-10] MEDS ORDERED: HEPARIN SODIUM (PORCINE) 5000 UNITS/ML 1ML VIAL IV SCH ×2 (15:30→16:00)
[2021-10-10] MEDS ORDERED: HEPARIN DRIP/D5W 100UNITS/ML 250 ML IV SCH ×3 (15:30→17:00)
[2021-10-10] MEDS ORDERED: diphenhdrAMINE HCL 50 MG/1 ML VL ONE (15:58)
[2021-10-10] MEDS ORDERED: HYDROmorphone HCL 2 MG/ML VL/or syr ONE (16:17)
[2021-10-10 18:40] LABS: INR 1.06 (0.9-1.15)
[2021-10-10 18:54] LABS: Partial Thromboplastin Time 81.1 sec (24.6-33.4)
[2021-10-10] MEDS: APIXABAN 5 MG TAB PO SCH (22:10)
[2021-10-10 22:50] LABS: INR 1.01 (0.9-1.15); Partial Thromboplastin Time 35.7 sec (24.6-33.4)
[2021-10-11] VITALS (19 sets, daily range): BP systolic 78–117; BP diastolic 43–74
[2021-10-11 05:10] LABS: Basophils # (auto) 0.1 10 ^3/uL (0-0.2); Basophils % (auto) 1.3 % (0.0-2.0); Eosinophils # (auto) 0 10 ^3/uL (0-0.8); Eosinophils % (auto) 0.8 % (0.0-7.0); Hematocrit 24.1 % (41.0-53.0); Hemoglobin 8.1 g/dL (13.5-17.5); Lymphocytes # (auto) 1.2 10 ^3/uL (0.4-5.4); Mean Corpuscular Hemoglobin 34.9 pg (28.0-32.0); Mean Corpuscular Hgb Conc. 33.7 g/dL (32.0-36.0); Mean Corpuscular Volume 103.4 fL (80.0-100.0); Monocytes # (auto) 0.5 10 ^3/uL (0-1.3); Monocytes % (auto) 9.4 % (0.0-12.0); Neutrophils # (auto) 3.9 10 ^3/uL (1.6-8.6); Neutrophils % (auto) 67.5 % (37.0-80.0); Nucleated Red Blood Cells % 0.1 %; Red Blood Cells 2.33 10^6/uL (4.5-5.90); Red Cell Distribution Width 15.2 % (11.8-14.3); White Blood Cell 5.8 10^3/uL (4.4-10.8)
[2021-10-11 05:29] LABS: Calcium 8.1 mg/dL (8.5-10.1); Potassium 4.1 mmol/L (3.5-5.1)
[2021-10-11 05:35] LABS: Albumin 2.9 g/dL (3.4-5.0); BUN/Creatinine Ratio 17.1; Bilirubin, Total 0.3 mg/dL (0.2-1.0); Total Protein 6.9 g/dL (6.4-8.2)
[2021-10-11] MEDS: ASPirin 81 mg TAB PO SCH (13:19)
[2021-10-11] MEDS: SODIUM CHLORIDE 0.9% 1,000 ML IV SCH ×2 (13:19→17:56)
[2021-10-11] MEDS: FAMOTIDINE (10MG/ML) 2ML VL IV SCH ×2 (13:19→22:02)
[2021-10-11] MEDS: MULTIPLE VITAMIN TAB PO SCH (13:20)
[2021-10-11] MEDS: APIXABAN 5 MG TAB PO SCH ×2 (13:20→22:02)
[2021-10-11] MEDS ORDERED: MIDODRINE HCL 10 MG TAB PO ONE (18:15)
[2021-10-11] MEDS ORDERED: BISACODYL 10 MG RECT SUPP PR ONE (20:00)
[2021-10-11] MEDS: HYDROcodone-ACET 5/325MG TAB PO PRN (20:13)
[2021-10-12] MEDS: HYDROcodone-ACET 5/325MG TAB PO PRN ×3 (00:22→20:39)
[2021-10-12] MEDS: ONDANSETRON HCL 4 MG/2 ML VIAL IV PRN ×3 (03:14→22:52)
[2021-10-12 05:00] VITALS: BP 76/40
[2021-10-12] MEDS: MIDODRINE HCL 10 MG TAB PO SCH ×3 (06:59→17:54)
[2021-10-12 09:00] VITALS: BP 99/52
[2021-10-12] MEDS: FAMOTIDINE (10MG/ML) 2ML VL IV SCH ×2 (09:14→22:25)
[2021-10-12] MEDS: ASPirin 81 mg TAB PO SCH (09:14)
[2021-10-12] MEDS: SODIUM CHLORIDE 0.9% 1,000 ML IV SCH ×2 (09:15→22:33)
[2021-10-12] MEDS: APIXABAN 5 MG TAB PO SCH ×2 (09:15→22:25)
[2021-10-12] MEDS: MULTIPLE VITAMIN TAB PO SCH (09:15)
[2021-10-12] MEDS ORDERED: APIX5TAB PO ×2 (10:22→11:00)
[2021-10-12 12:43] VITALS: BP 99/52
[2021-10-12 17:00] VITALS: BP 95/47
[2021-10-12] MEDS: ACETAMINOPHEN 325 MG TAB PO PRN (19:11)
[2021-10-12 22:00] VITALS: BP 101/49
[2021-10-13 05:00] VITALS: BP 94/57
[2021-10-13] MEDS: MIDODRINE HCL 10 MG TAB PO SCH ×2 (05:32→11:35)
[2021-10-13 09:00] VITALS: BP 117/68
[2021-10-13] MEDS: FAMOTIDINE (10MG/ML) 2ML VL IV SCH (09:20)
[2021-10-13] MEDS: APIXABAN 5 MG TAB PO SCH (09:20)
[2021-10-13] MEDS: MULTIPLE VITAMIN TAB PO SCH (09:20)
[2021-10-13] MEDS: ASPirin 81 mg TAB PO SCH (09:20)
[2021-10-13 13:00] VITALS: BP 111/56
[2021-10-13] MEDS: ACETAMINOPHEN 325 MG TAB PO PRN (15:43)
[2021-10-13 17:00] VITALS: BP 111/56
== END 2021-10-13 17:30 | disposition home or self-care (01) | DRG 163 ==
LOC: ER 16:27 → EDUNIT# 16:27 → EDBD 16:27 → TELE 23:57 → TELE-CENTR 10-09 22:50 → DOU IN ICU 10-10 17:23 → TELE-EAST 10-11 13:56
PROVIDERS: ADMIT Nurse Practitioner Family; ATTEND Family Medicine
PROC: 02CP3ZZ Extirpation of Matter from Pulmonary Trunk, Percutaneous Approach (ICD-10-PCS; principal; 2021-10-13)
DX: I26.92 Saddle embolus of pulmonary artery without acute cor pulmonale (principal); I21.4 Non-ST elevation (NSTEMI) myocardial infarction; J96.01 Acute respiratory failure with hypoxia; G82.20 Paraplegia, unspecified; F84.0 Autistic disorder; D68.59 Other primary thrombophilia; D64.9 Anemia, unspecified; I10 Essential (primary) hypertension; N31.9 Neuromuscular dysfunction of bladder, unspecified; E88.09 Other disorders of plasma-protein metabolism, not elsewhere classified; I95.9 Hypotension, unspecified; Z20.822 Contact with and (suspected) exposure to COVID-19; Z85.47 Personal history of malignant neoplasm of testis; Q90.9 Down syndrome, unspecified; Z82.49 Family history of ischemic heart disease and other diseases of the circulatory system; Z79.01 Long term (current) use of anticoagulants; Z74.01 Bed confinement status
CPT/HCPCS: 36415; 36600; 71045; 71275; 80053; 82805; 82962; 83605; 83735; 84484; 85025; 85379; 85610; 85730; 87040; 87077; 87186; 93005; 96361; 96365; 96366; 96372; 99152; 99153; G0378; J2001; J2250; J2405; J3490; P9047; Q9967

== ENCOUNTER 2022-10-06 14:59 | Inpatient (IN) | payer MEDICARE, MEDICAID ==
[~2022-10-06] VITALS: Ht 162.6 cm; Wt 74.0 kg
[~2022-10-06 14:59] MED LIST changes: -ACET-1156 PO; +ACET-1881 PO; -ACET300T2 PO; +ACET300T51 PO; +APIX5TAB PO; +DOCU250C12 PO; -DOCU250C4 PO; -MIDO10TA2 PO; +MIDO10TA3 PO
[2022-10-06 15:48] LABS: Eosinophils # (auto) 0 10 ^3/uL (0-0.8); Mean Corpuscular Volume 102.8 fL (80.0-100.0); Monocytes # (auto) 0.6 10 ^3/uL (0-1.3); Neutrophils # (auto) 11.6 10 ^3/uL (1.6-8.6)
[2022-10-06 15:50] LABS: Basophils # (auto) 0 10 ^3/uL (0-0.2); Basophils % (auto) 0.2 % (0.0-2.0); Hematocrit 40.7 % (41.0-53.0); Hemoglobin 13.5 g/dL (13.5-17.5); Lymphocytes # (auto) 0.8 10 ^3/uL (0.4-5.4); Lymphocytes % (auto) 6.4 % (10.0-50.0); Mean Corpuscular Hemoglobin 34.1 pg (28.0-32.0); Mean Corpuscular Hgb Conc. 33.1 g/dL (32.0-36.0); Monocytes % (auto) 4.3 % (0.0-12.0); Neutrophils % (auto) 89.1 % (37.0-80.0); Red Blood Cells 3.95 10^6/uL (4.5-5.90); Red Cell Distribution Width 14.3 % (11.8-14.3)
[2022-10-06 16:00] VITALS: PULSE 84; RESP 12; O2SAT 95
[2022-10-06 16:23] LABS: Albumin 3.2 g/dL (3.4-5.0); BUN/Creatinine Ratio 18.2 (10.0-20.0); Calcium 8.4 mg/dL (8.5-10.1); Potassium 4.3 mmol/L (3.5-5.1)
[2022-10-06 16:26] LABS: Bilirubin, Total 0.2 mg/dL (0.2-1.0); Total Protein 7.3 g/dL (6.4-8.2)
[2022-10-06] MEDS ORDERED: VANCOMYCIN 1GM/250ML 250 ML IV ONE (16:30)
[2022-10-06] MEDS ORDERED: SODIUM CHLORIDE 0.9% 1,000 ML IV ONE (16:30)
[2022-10-06] MEDS ORDERED: PIPERACILLIN-TAZOB 3.375GM 100 ML IV ONE (16:30)
[2022-10-06 16:40] LABS: Urine Bacteria MANY /hpf (None Seen); Urine Blood 3+ /uL (Negative); Urine Mucus FEW (None Seen); Urine WBC 1380 /hpf (0 - 3); Urine WBC Clumps PRESENT /hpf (None Seen)
[2022-10-06 17:22] LABS: Urine Specific Gravity 1.032 (1.001-1.035)
[2022-10-06] MEDS ORDERED: PANTOPRAZOLE 40 MG/10 ML VIAL INJ IV ONE (17:45)
[2022-10-06] MEDS ORDERED: ACETAMINOPHEN 325 MG TAB PO ONE (17:45)
[2022-10-06] MEDS ORDERED: MIDODRINE HCL 10 MG TAB PO ONE (18:45)
[2022-10-06] MEDS ORDERED: TEMAZEPAM 15 MG CAP PO PRN (18:45)
[2022-10-06] MEDS ORDERED: ONDANSETRON HCL 4 MG/2 ML VIAL IV PRN (18:45)
[2022-10-06 19:29] LABS: INR 1.05 (0.9-1.15); Partial Thromboplastin Time 33.3 SEC (24.5-34.5)
[2022-10-06] MEDS: HYDROcodone-ACET 5/325MG TAB PO PRN (19:57)
[2022-10-06 20:10] VITALS: PULSE 74; RESP 12; O2SAT 98
[2022-10-06] MEDS ORDERED: SODIUM CHLORIDE 0.9% 500 ML IV ONE (22:15)
[2022-10-06] MEDS ORDERED: MORPHINE SULFATE INJ 2 MG/ml SYRG IV PRN (22:45)
[2022-10-06] MEDS ORDERED: NITROGLYCERIN 0.4 MG SL TAB SL PRN (22:45)
[2022-10-07] VITALS (9 sets, daily range): BP systolic 86–106; BP diastolic 45–60; PULSE 44–73; RESP 16–20; TEMP 97.4–98.6; O2SAT 95–100
[2022-10-07 05:10] LABS: Basophils # (auto) 0.1 10 ^3/uL (0-0.2); Basophils % (auto) 0.9 % (0.0-2.0); Eosinophils # (auto) 0 10 ^3/uL (0-0.8); Eosinophils % (auto) 0.2 % (0.0-7.0); Hematocrit 35.2 % (41.0-53.0); Lymphocytes # (auto) 1.6 10 ^3/uL (0.4-5.4); Lymphocytes % (auto) 22.6 % (10.0-50.0); Mean Corpuscular Hgb Conc. 34.1 g/dL (32.0-36.0); Mean Corpuscular Volume 102.5 fL (80.0-100.0); Monocytes # (auto) 0.5 10 ^3/uL (0-1.3); Monocytes % (auto) 6.5 % (0.0-12.0); Neutrophils # (auto) 5.1 10 ^3/uL (1.6-8.6); Neutrophils % (auto) 69.8 % (37.0-80.0); Nucleated Red Blood Cells % 0.1 %; Red Blood Cells 3.43 10^6/uL (4.5-5.90); Red Cell Distribution Width 14.3 % (11.8-14.3); White Blood Cell 7.3 10^3/uL (4.4-10.8)
[2022-10-07 05:31] LABS: BUN/Creatinine Ratio 21.1 (10.0-20.0); Calcium 8.1 mg/dL (8.5-10.1)
[2022-10-07] MEDS: MIDODRINE HCL 10 MG TAB PO SCH ×3 (06:11→17:12)
[2022-10-07] MEDS: cefTRIAXone 1GM/50ML D5W 50 ML IV SCH (10:55)
[2022-10-07] MEDS: PANTOPRAZOLE 40 MG TAB PO SCH (10:55)
[2022-10-07] MEDS: ACETAMINOPHEN 325 MG TAB PO PRN ×2 (10:56→22:00)
[2022-10-07 11:51] LABS: Alcohol, Urine < 3.0 mg/dL (0-10); Amphetamine Screen, Urine NEGATIVE (NEGATIVE); Barbiturate Scree,Urine NEGATIVE (NEGATIVE); Benzodiazephine Screen, Urine NEGATIVE (NEGATIVE); Cannabinoid Screen, Urine NEGATIVE (NEGATIVE); Cocaine Screen, Urine NEGATIVE (NEGATIVE); Opiate Scree,Urine NEGATIVE (NEGATIVE); Phencyclidine Screen, Urine NEGATIVE (NEGATIVE)
[2022-10-07] MEDS: SUCRALFATE 1 GM/10 ML ORAL SUSP PO SCH ×2 (17:12→21:44)
[2022-10-07] MEDS: HYDROcodone-ACET 5/325MG TAB PO PRN ×2 (19:37→23:14)
[2022-10-08] VITALS (7 sets, daily range): BP systolic 71–116; BP diastolic 38–62; PULSE 50–66; RESP 14–20; TEMP 97.4–98.4; O2SAT 94–98
[2022-10-08] MEDS: HYDROcodone-ACET 5/325MG TAB PO PRN (03:57)
[2022-10-08] MEDS: SUCRALFATE 1 GM/10 ML ORAL SUSP PO SCH ×4 (06:26→21:05)
[2022-10-08] MEDS: MIDODRINE HCL 10 MG TAB PO SCH ×3 (06:26→17:34)
[2022-10-08] MEDS: ACETAMINOPHEN 325 MG TAB PO PRN ×2 (06:55→17:34)
[2022-10-08] MEDS: PANTOPRAZOLE 40 MG TAB PO SCH (08:21)
[2022-10-08] MEDS: cefTRIAXone 1GM/50ML D5W 50 ML IV SCH (08:21)
[2022-10-08] MEDS ORDERED: LACTULOSE 20Gm/30ML SOLN PO ONE (20:15)
[2022-10-09] VITALS (7 sets, daily range): BP systolic 90–109; BP diastolic 47–68; PULSE 55–69; RESP 16–18; TEMP 97.6–98.6; O2SAT 94–98
[2022-10-09] MEDS: ACETAMINOPHEN 325 MG TAB PO PRN ×4 (00:01→23:48)
[2022-10-09] MEDS: MIDODRINE HCL 10 MG TAB PO SCH ×3 (06:00→18:26)
[2022-10-09] MEDS: SUCRALFATE 1 GM/10 ML ORAL SUSP PO SCH ×4 (06:00→22:05)
[2022-10-09] MEDS: cefTRIAXone 1GM/50ML D5W 50 ML IV SCH (10:05)
[2022-10-09] MEDS: PANTOPRAZOLE 40 MG TAB PO SCH (10:06)
[2022-10-09] MEDS: BISACODYL 10 MG RECT SUPP PR PRN (10:06)
[2022-10-09 14:56] LABS: Urine Bacteria NONE SEEN /hpf (None Seen); Urine Blood Negative /uL (Negative); Urine Specific Gravity 1.014 (1.001-1.035); Urine WBC 12 /hpf (0 - 3)
[2022-10-10] VITALS (10 sets, daily range): BP systolic 86–109; BP diastolic 51–66; PULSE 57–89; RESP 17–19; TEMP 97.5–97.9; O2SAT 92–98
[2022-10-10] MEDS: MIDODRINE HCL 10 MG TAB PO SCH ×3 (05:57→17:25)
[2022-10-10] MEDS: SUCRALFATE 1 GM/10 ML ORAL SUSP PO SCH ×4 (05:58→21:09)
[2022-10-10] MEDS: PANTOPRAZOLE 40 MG TAB PO SCH (09:35)
[2022-10-10] MEDS: BISACODYL 10 MG RECT SUPP PR PRN (09:35)
[2022-10-10] MEDS: cefTRIAXone 1GM/50ML D5W 50 ML IV SCH (09:35)
[2022-10-10] MEDS: ACETAMINOPHEN 325 MG TAB PO PRN (21:09)
[2022-10-11] VITALS (10 sets, daily range): BP systolic 85–139; BP diastolic 48–73; PULSE 48–91; RESP 16–18; TEMP 97.6–98.2; O2SAT 92–99
[2022-10-11 05:47] LABS: INR 1.04 (0.9-1.15); Partial Thromboplastin Time 29.1 SEC (24.5-34.5)
[2022-10-11 05:49] LABS: Basophils # (auto) 0.1 10 ^3/uL (0-0.2); Basophils % (auto) 1.4 % (0.0-2.0); Eosinophils # (auto) 0 10 ^3/uL (0-0.8); Eosinophils % (auto) 0.9 % (0.0-7.0); Hemoglobin 12.9 g/dL (13.5-17.5); Lymphocytes # (auto) 2.1 10 ^3/uL (0.4-5.4); Mean Corpuscular Hemoglobin 34.6 pg (28.0-32.0); Mean Corpuscular Hgb Conc. 33.9 g/dL (32.0-36.0); Monocytes # (auto) 0.4 10 ^3/uL (0-1.3); Monocytes % (auto) 7.9 % (0.0-12.0); Neutrophils # (auto) 2.8 10 ^3/uL (1.6-8.6); Neutrophils % (auto) 50.8 % (37.0-80.0); Nucleated Red Blood Cells % 0.1 %; Red Blood Cells 3.73 10^6/uL (4.5-5.90); White Blood Cell 5.5 10^3/uL (4.4-10.8)
[2022-10-11 06:08] LABS: BUN/Creatinine Ratio 22.8 (10.0-20.0); Calcium 8.9 mg/dL (8.5-10.1); Potassium 3.7 mmol/L (3.5-5.1)
[2022-10-11] MEDS: SUCRALFATE 1 GM/10 ML ORAL SUSP PO SCH ×4 (06:21→21:22)
[2022-10-11] MEDS: MIDODRINE HCL 10 MG TAB PO SCH ×3 (06:21→18:25)
[2022-10-11] MEDS ORDERED: LIDOCAINE VISCOUS 2% 15ML UD ONE (08:10)
[2022-10-11] MEDS: PANTOPRAZOLE 40 MG TAB PO SCH (10:00)
[2022-10-11] MEDS: cefTRIAXone 1GM/50ML D5W 50 ML IV SCH (10:08)
[2022-10-11] MEDS ORDERED: MIDAZOLAM HCL 2MG/2ML 2ml VIAL (1mg/ml) ONE (12:17)
[2022-10-11] MEDS ORDERED: fentaNYL CITRATE 100 MCG/2 ML VL ONE (12:17)
[2022-10-11] MEDS ORDERED: PROPOFOL 10 MG/ML 20 ML IV ONE (12:36)
[2022-10-11] MEDS ORDERED: ONDANSETRON HCL 4 MG/2 ML VIAL IV PRN (12:45)
[2022-10-11] MEDS: ACETAMINOPHEN 325 MG TAB PO PRN (18:23)
[2022-10-12 05:00] VITALS: BP 105/64; PULSE 67; RESP 16; TEMP 98; O2SAT 97
[2022-10-12] MEDS: SUCRALFATE 1 GM/10 ML ORAL SUSP PO SCH ×2 (06:25→11:30)
[2022-10-12] MEDS: MIDODRINE HCL 10 MG TAB PO SCH ×2 (06:25→12:00)
[2022-10-12 09:00] VITALS: BP 126/70; PULSE 57; RESP 18; TEMP 97.7; O2SAT 95
[2022-10-12] MEDS: cefTRIAXone 1GM/50ML D5W 50 ML IV SCH (09:56)
[2022-10-12] MEDS: PANTOPRAZOLE 40 MG TAB PO SCH (09:57)
[2022-10-12] MEDS ORDERED: PANT40T PO (10:46)
[2022-10-12] MEDS ORDERED: SUCR1TAB22 PO (10:46)
[2022-10-12 13:00] VITALS: BP 100/58; PULSE 77; RESP 18; TEMP 98.4; O2SAT 96
[2022-10-12 14:09] VITALS: PULSE 77; TEMP 36.5
== END 2022-10-12 16:00 | disposition home or self-care (01) | DRG 699 ==
LOC: EDUNIT# 14:59 → EDBD 14:59 → ER 14:59 → OVERFLOW 18:55 → TELE-WESTW 18:55 → UNDOADMIN 18:55 → TELE-EAST 23:45
PROVIDERS: ADMIT Nurse Practitioner; ATTEND Family Medicine
PROC: 0DB68ZX Excision of Stomach, Via Natural or Artificial Opening Endoscopic, Diagnostic (ICD-10-PCS; 2022-10-11)
PROC: 0DB98ZX Excision of Duodenum, Via Natural or Artificial Opening Endoscopic, Diagnostic (ICD-10-PCS; principal; 2022-10-11 12:15)
DX: T83.511A Infection and inflammatory reaction due to indwelling urethral catheter, initial encounter (principal); G82.20 Paraplegia, unspecified; N30.01 Acute cystitis with hematuria; K21.9 Gastro-esophageal reflux disease without esophagitis; I95.89 Other hypotension; I10 Essential (primary) hypertension; R00.1 Bradycardia, unspecified; K44.9 Diaphragmatic hernia without obstruction or gangrene; E78.5 Hyperlipidemia, unspecified; K29.70 Gastritis, unspecified, without bleeding; Q90.9 Down syndrome, unspecified; Z82.49 Family history of ischemic heart disease and other diseases of the circulatory system; Z85.47 Personal history of malignant neoplasm of testis; Z86.711 Personal history of pulmonary embolism; Z87.891 Personal history of nicotine dependence
CPT/HCPCS: 36415; 71045; 74176; 80048; 80053; 80061; 80307; 81001; 83036; 83605; 83735; 83880; 84443; 84484; 85025; 85379; 85610; 85730; 87040; 87086; 87088; 87186; 93005; 93306; 97110; 97163; 97530; C9113; G0378; J0696; J2250; J2405; J2543; J2704

== ENCOUNTER 2022-12-15 11:41 | Inpatient (IN) | payer MEDICARE, MEDICAID ==
[~2022-12-15] VITALS: Ht 162.6 cm; Wt 70.6 kg
[~2022-12-15 11:41] MED LIST changes: -APIX5TAB PO; +PANT40T PO; +SUCR1TAB22 PO
[2022-12-15] MEDS ORDERED: SODIUM CHLORIDE 0.9% 500 ML IVB ONE (12:00)
[2022-12-15 12:10] LABS: Eosinophils # (auto) 0 10 ^3/uL (0-0.8)
[2022-12-15 12:12] LABS: Basophils # (auto) 0.1 10 ^3/uL (0-0.2); Basophils % (auto) 0.5 % (0.0-2.0); Hematocrit 41.7 % (41.0-53.0); Lymphocytes # (auto) 1.1 10 ^3/uL (0.4-5.4); Lymphocytes % (auto) 7.8 % (10.0-50.0); Mean Corpuscular Hemoglobin 33.7 pg (28.0-32.0); Mean Corpuscular Hgb Conc. 33.5 g/dL (32.0-36.0); Mean Corpuscular Volume 100.6 fL (80.0-100.0); Monocytes # (auto) 0.8 10 ^3/uL (0-1.3); Monocytes % (auto) 5.3 % (0.0-12.0); Neutrophils # (auto) 12.6 10 ^3/uL (1.6-8.6); Neutrophils % (auto) 86.4 % (37.0-80.0); Red Blood Cells 4.15 10^6/uL (4.5-5.90); Red Cell Distribution Width 14.2 % (11.8-14.3); White Blood Cell 14.6 10^3/uL (4.4-10.8)
[2022-12-15 12:29] LABS: INR 1.1 (0.9-1.15); Partial Thromboplastin Time 35.9 SEC (24.5-34.5); Prothrombin Time 11.5 sec (9.3-11.8)
[2022-12-15 12:31] LABS: Lactic Acid w/Reflex 2.7 mmol/L (0.4-2.0)
[2022-12-15 12:32] LABS: Alanine Aminotransferase 46 U/L (7-40); Albumin 4.3 g/dL (3.2-4.8); Alkaline Phosphatase 107 U/L (46-116); Anion Gap 10 (5-15); Aspartate Aminotransferase 20 U/L (13-40); BUN/Creatinine Ratio 24.5 (10.0-20.0); Blood Urea Nitrogen 24 mg/dL (9-23); Calcium 8.9 mg/dL (8.7-10.4); Carbon Dioxide 22 mmol/L (20-30); Chloride 106 mmol/L (98-107); Glucose 171 mg/dL (74-106); Lipase 28 U/L (12-53); Magnesium 1.8 mg/dL (1.6-2.6); Potassium 4.2 mmol/L (3.5-5.1); Sodium 138 mmol/L (136-145)
[2022-12-15 12:33] LABS: Bilirubin, Total 0.3 mg/dL (0.2-1.0); Total Protein 7.4 g/dL (5.7-8.2)
[2022-12-15 14:14] LABS: Urine Bacteria FEW /hpf (None Seen); Urine Blood 1+ /uL (Negative); Urine Clarity CLOUDY (Clear); Urine Color Yellow (Yellow); Urine Mucus MODERATE (None Seen); Urine Protein, UAD 2+ (Negative); Urine Specific Gravity 1.016 (1.001-1.035); Urine Urobilinogen Normal (Negative); Urine WBC 13 /hpf (0 - 3)
[2022-12-15] MEDS ORDERED: cefTRIAXone 1GM/50ML D5W 50 ML IV ONE (14:15)
[2022-12-15] MEDS ORDERED: NITROGLYCERIN 0.4 MG SL TAB SL PRN (14:45)
[2022-12-15] MEDS: SODIUM CHLORIDE 0.9% 1,000 ML IV SCH ×2 (14:45→22:29)
[2022-12-15] MEDS ORDERED: MORPHINE SULFATE INJ 2 MG/ml SYRG IV PRN (14:45)
[2022-12-15] MEDS ORDERED: MIDODRINE HCL 10 MG TAB PO ONE (15:00)
[2022-12-15] MEDS ORDERED: SUCRALFATE 1 GM TAB PO PRN (15:00)
[2022-12-15] MEDS: ENOXAPARIN SOD 100 MG/1 ML SYRINGE SC SCH (15:30)
[2022-12-15] MEDS: ACETAMINOPHEN 325 MG TAB PO PRN (15:31)
[2022-12-15 15:33] VITALS: PULSE 102; RESP 18; O2SAT 96
[2022-12-15 19:30] VITALS: PULSE 84; RESP 12; O2SAT 100
[2022-12-15 21:07] VITALS: BP 98/47; PULSE 74; RESP 14; TEMP 99.1; O2SAT 98
[2022-12-15] MEDS ORDERED: MIDODRINE HCL 10 MG TAB PO SCH (22:00)
[2022-12-15] MEDS: PANTOPRAZOLE 40 MG TAB PO SCH (22:24)
[2022-12-15] MEDS: HYDROcodone-ACET 5/325MG TAB PO PRN (22:25)
[2022-12-16] VITALS (10 sets, daily range): BP systolic 78–113; BP diastolic 46–67; PULSE 59–84; RESP 14–20; TEMP 97.9–98.4; O2SAT 94–98
[2022-12-16] MEDS ORDERED: MID10T GT (01:25)
[2022-12-16] MEDS ORDERED: MIDODRINE HCL 10 MG TAB PO PRN (02:00)
[2022-12-16] MEDS: MIDODRINE HCL 10 MG TAB PO PRN ×3 (02:12→20:59)
[2022-12-16] MEDS ORDERED: SODIUM CHLORIDE 0.9% 500 ML IV ONE (07:00)
[2022-12-16 07:01] LABS: Alanine Aminotransferase 45 U/L (7-40); Albumin 3.7 g/dL (3.2-4.8); Alkaline Phosphatase 89 U/L (46-116); Anion Gap 4 (5-15); Aspartate Aminotransferase 16 U/L (13-40); BUN/Creatinine Ratio 21.1 (10.0-20.0); Bilirubin, Total 0.3 mg/dL (0.2-1.0); Blood Urea Nitrogen 16 mg/dL (9-23); Calcium 8.5 mg/dL (8.7-10.4); Carbon Dioxide 27 mmol/L (20-30); Chloride 106 mmol/L (98-107); Glucose 115 mg/dL (74-106); Potassium 4.5 mmol/L (3.5-5.1); Sodium 137 mmol/L (136-145)
[2022-12-16 07:02] LABS: Total Protein 6.7 g/dL (5.7-8.2)
[2022-12-16 07:37] LABS: Eosinophils # (auto) 0 10 ^3/uL (0-0.8); Hemoglobin 11.6 g/dL (13.5-17.5); Lymphocytes # (auto) 1.5 10 ^3/uL (0.4-5.4); Monocytes # (auto) 0.6 10 ^3/uL (0-1.3); Red Cell Distribution Width 14.3 % (11.8-14.3)
[2022-12-16 07:40] LABS: Basophils # (auto) 0.1 10 ^3/uL (0-0.2); Basophils % (auto) 0.4 % (0.0-2.0); Eosinophils % (auto) 0.2 % (0.0-7.0); Hematocrit 34.1 % (41.0-53.0); Mean Corpuscular Hemoglobin 34.4 pg (28.0-32.0); Mean Corpuscular Hgb Conc. 34.1 g/dL (32.0-36.0); Mean Corpuscular Volume 100.9 fL (80.0-100.0); Monocytes % (auto) 4.5 % (0.0-12.0); Neutrophils # (auto) 11.7 10 ^3/uL (1.6-8.6); Neutrophils % (auto) 83.9 % (37.0-80.0); Red Blood Cells 3.37 10^6/uL (4.5-5.90)
[2022-12-16] MEDS: PANTOPRAZOLE 40 MG TAB PO SCH ×2 (08:46→21:01)
[2022-12-16] MEDS: DOCUSATE CALCIUM 240 MG CAP PO SCH (08:46)
[2022-12-16] MEDS: cefTRIAXone 1GM/50ML D5W 50 ML IV SCH (08:46)
[2022-12-16] MEDS ORDERED: ENOXAPARIN SOD 40 MG/0.4 ML SYRINGE SC SCH (10:00)
[2022-12-16] MEDS: HYDROcodone-ACET 5/325MG TAB PO PRN ×3 (12:01→21:07)
[2022-12-16] MEDS ORDERED: SUCRALFATE 1 GM TAB PO ONE (13:30)
[2022-12-16] MEDS: ENOXAPARIN SOD 100 MG/1 ML SYRINGE SC SCH (13:47)
[2022-12-16] MEDS: SUCRALFATE 1 GM TAB PO SCH ×2 (16:04→21:01)
[2022-12-16] MEDS: SODIUM CHLORIDE 0.9% 1,000 ML IV SCH (17:27)
[2022-12-16] MEDS: CALCIUM CARB 500 MG CHEW TAB PO PRN (20:57)
[2022-12-17] VITALS (8 sets, daily range): BP systolic 80–105; BP diastolic 51–73; PULSE 56–74; RESP 16–20; TEMP 97.6–98.5; O2SAT 90–98
[2022-12-17] MEDS ORDERED: FAMOTIDINE (10MG/ML) 2ML VL IV ONE (00:15)
[2022-12-17] MEDS ORDERED: ASPirin-EC 81 mg tab PO ONE (00:15)
[2022-12-17] MEDS: SUCRALFATE 1 GM TAB PO SCH ×4 (06:05→22:14)
[2022-12-17] MEDS: SODIUM CHLORIDE 0.9% 1,000 ML IV SCH ×2 (06:05→23:01)
[2022-12-17] MEDS: cefTRIAXone 1GM/50ML D5W 50 ML IV SCH (09:12)
[2022-12-17] MEDS: FAMOTIDINE (10MG/ML) 2ML VL IV SCH (09:13)
[2022-12-17] MEDS: PANTOPRAZOLE 40 MG TAB PO SCH ×2 (09:13→22:14)
[2022-12-17] MEDS: DOCUSATE CALCIUM 240 MG CAP PO SCH (09:13)
[2022-12-17] MEDS: ASPirin-EC 81 mg tab PO SCH (09:13)
[2022-12-17] MEDS: ENOXAPARIN SOD 100 MG/1 ML SYRINGE SC SCH (14:52)
[2022-12-17] MEDS: HYDROcodone-ACET 5/325MG TAB PO PRN (16:26)
[2022-12-17] MEDS: CALCIUM CARB 500 MG CHEW TAB PO PRN (19:51)
[2022-12-17] MEDS: ACETAMINOPHEN 325 MG TAB PO PRN (19:52)
[2022-12-17] MEDS ORDERED: DOCUSATE SOD 100 MG CAP PO ONE (20:15)
[2022-12-18] VITALS (7 sets, daily range): BP systolic 95–137; BP diastolic 52–62; PULSE 51–74; RESP 18–22; TEMP 98–98.6; O2SAT 90–98
[2022-12-18] MEDS: HYDROcodone-ACET 5/325MG TAB PO PRN ×2 (00:28→23:53)
[2022-12-18] MEDS: SUCRALFATE 1 GM TAB PO SCH ×4 (08:00→21:00)
[2022-12-18] MEDS ORDERED: FLEET ENEMA(ADULT) 135 ML PR ONE (09:00)
[2022-12-18] MEDS: ASPirin-EC 81 mg tab PO SCH (09:47)
[2022-12-18] MEDS: PANTOPRAZOLE 40 MG TAB PO SCH ×2 (09:47→21:01)
[2022-12-18] MEDS: DOCUSATE CALCIUM 240 MG CAP PO SCH (09:47)
[2022-12-18] MEDS: cefTRIAXone 1GM/50ML D5W 50 ML IV SCH (09:48)
[2022-12-18] MEDS: FAMOTIDINE (10MG/ML) 2ML VL IV SCH (09:48)
[2022-12-18] MEDS: SODIUM CHLORIDE 0.9% 1,000 ML IV SCH ×2 (09:48→23:05)
[2022-12-18] MEDS ORDERED: ERTAPENEM SOD INJ 1 GM in SODIUM CHL 0.9% 50 ML IV ONE (10:15)
[2022-12-18] MEDS: CALCIUM CARB 500 MG CHEW TAB PO PRN ×2 (13:32→21:47)
[2022-12-18] MEDS: ACETAMINOPHEN 325 MG TAB PO PRN ×2 (13:33→21:01)
[2022-12-18] MEDS: ENOXAPARIN SOD 100 MG/1 ML SYRINGE SC SCH (18:05)
[2022-12-18] MEDS: DOCUSATE SOD 100 MG CAP PO SCH (21:00)
[2022-12-18] MEDS ORDERED: BISACODYL 10 MG RECT SUPP PR ONE (22:00)
[2022-12-19 05:00] VITALS: BP 99/61; PULSE 68; RESP 18; TEMP 98.1; O2SAT 99
[2022-12-19] MEDS: SUCRALFATE 1 GM TAB PO SCH ×3 (06:34→17:00)
[2022-12-19 08:00] VITALS: BP 100/59; PULSE 69; RESP 19; TEMP 97.7; O2SAT 95
[2022-12-19] MEDS: DOCUSATE SOD 100 MG CAP PO SCH (09:48)
[2022-12-19] MEDS: PANTOPRAZOLE 40 MG TAB PO SCH (09:48)
[2022-12-19] MEDS: ASPirin-EC 81 mg tab PO SCH (09:48)
[2022-12-19] MEDS: DOCUSATE CALCIUM 240 MG CAP PO SCH (09:48)
[2022-12-19] MEDS: FAMOTIDINE (10MG/ML) 2ML VL IV SCH (09:50)
[2022-12-19] MEDS: CALCIUM CARB 500 MG CHEW TAB PO PRN ×2 (09:50→14:20)
[2022-12-19] MEDS ORDERED: ERTAPENEM SOD INJ 1 GM in SODIUM CHL 0.9% 50 ML IV SCH (10:00)
[2022-12-19 10:50] VITALS: BP 100/59; PULSE 69; RESP 19; TEMP 97.7; O2SAT 95
[2022-12-19] MEDS ORDERED: levoFLOXacin 500MG 100 ML IV ONE (11:15)
[2022-12-19] MEDS: SODIUM CHLORIDE 0.9% 1,000 ML IV SCH (11:47)
[2022-12-19 12:29] LABS: Hepatitis B Surface Antigen Negative (Negative)
[2022-12-19 12:50] LABS: Hepatitis C Antibody Negative (Negative)
[2022-12-19 13:25] VITALS: BP 105/58; PULSE 78; RESP 18; TEMP 97.5; O2SAT 97
[2022-12-19 13:29] LABS: COVID19 ANTIGEN SOFIA FIA NEGATIVE (NEGATIVE)
[2022-12-19] MEDS: ENOXAPARIN SOD 100 MG/1 ML SYRINGE SC SCH (14:20)
[2022-12-19] MEDS: ACETAMINOPHEN 325 MG TAB PO PRN (15:07)
[2022-12-19 16:29] VITALS: BP 105/58; PULSE 78; RESP 18; TEMP 97.5; O2SAT 97
[2022-12-19 16:50] VITALS: BP 107/65; PULSE 53; RESP 19; TEMP 98.6; O2SAT 95
[2022-12-20] MEDS ORDERED: levoFLOXacin 500MG 100 ML IV SCH (10:00)
== END 2022-12-19 18:16 | DRG 698 ==
LOC: ER 11:41 → EDBD 11:41 → TELE 14:47 → TELE-WESTW 20:55
PROVIDERS: ADMIT Nurse Practitioner Family; ATTEND Family Medicine
PROC: 05HD33Z Insertion of Infusion Device into Right Cephalic Vein, Percutaneous Approach (ICD-10-PCS; principal; 2022-12-19)
PROC: B54MZZA Ultrasonography of Right Upper Extremity Veins, Guidance (ICD-10-PCS; 2022-12-19)
PROC: 0T2BX0Z Change Drainage Device in Bladder, External Approach (ICD-10-PCS; 2022-12-19)
DX: T83.028A Displacement of other urinary catheter, initial encounter (principal); A41.59 Other Gram-negative sepsis; E43 Unspecified severe protein-calorie malnutrition; N13.6 Pyonephrosis; Y84.6 Urinary catheterization as the cause of abnormal reaction of the patient, or of later complication, without mention of misadventure at the time of the procedure; I10 Essential (primary) hypertension; R73.9 Hyperglycemia, unspecified; B95.2 Enterococcus as the cause of diseases classified elsewhere; I95.89 Other hypotension; Z20.822 Contact with and (suspected) exposure to COVID-19; Z85.47 Personal history of malignant neoplasm of testis; Z68.26 Body mass index [BMI] 26.0-26.9, adult; Z74.01 Bed confinement status; Z79.82 Long term (current) use of aspirin; Z91.048 Other nonmedicinal substance allergy status; Q90.9 Down syndrome, unspecified; Z83.3 Family history of diabetes mellitus; Z82.49 Family history of ischemic heart disease and other diseases of the circulatory system; Z86.711 Personal history of pulmonary embolism; Y92.89 Other specified places as the place of occurrence of the external cause
CPT/HCPCS: 36415; 74176; 80053; 81001; 82962; 83036; 83605; 83690; 83735; 84484; 85025; 85610; 85730; 86803; 87040; 87077; 87086; 87088; 87186; 87340; 87426; 93005; 96361; 96365; 96372; G0378; J0696; J1335; J1956; J3490

== ENCOUNTER 2023-02-26 10:50 | Emergency (ER) | payer MEDICARE, MEDICAID ==
[~2023-02-26] VITALS: Ht 167.6 cm; Wt 75.0 kg
[~2023-02-26 10:50] MED LIST changes: +MID10T GT; -MIDO10TA3 PO; -SUCR1TAB22 PO
[2023-02-26] MEDS ORDERED: SODIUM CHLORIDE 0.9% 1,000 ML IV ONE (11:00)
[2023-02-26 11:13] LABS: Basophils # (auto) 0 10 ^3/uL (0-0.2); Basophils % (auto) 0.3 % (0.0-2.0); Eosinophils # (auto) 0 10 ^3/uL (0-0.8); Eosinophils % (auto) 0.2 % (0.0-7.0); Hematocrit 41.2 % (41.0-53.0); Hemoglobin 13.5 g/dL (13.5-17.5); Lymphocytes # (auto) 0.5 10 ^3/uL (0.4-5.4); Lymphocytes % (auto) 3.1 % (10.0-50.0); Mean Corpuscular Hemoglobin 32.7 pg (28.0-32.0); Mean Corpuscular Hgb Conc. 32.8 g/dL (32.0-36.0); Mean Corpuscular Volume 99.6 fL (80.0-100.0); Monocytes # (auto) 0.4 10 ^3/uL (0-1.3); Monocytes % (auto) 2.3 % (0.0-12.0); Neutrophils # (auto) 15.1 10 ^3/uL (1.6-8.6); Neutrophils % (auto) 94.1 % (37.0-80.0); Red Blood Cells 4.14 10^6/uL (4.5-5.90); Red Cell Distribution Width 14.7 % (11.8-14.3)
[2023-02-26 11:31] LABS: Alanine Aminotransferase 47 U/L (7-40); Albumin 4.3 g/dL (3.2-4.8); Alkaline Phosphatase 100 U/L (46-116); Anion Gap 10 (5-15); Aspartate Aminotransferase 30 U/L (13-40); BUN/Creatinine Ratio 13.5 (10.0-20.0); Blood Urea Nitrogen 13 mg/dL (9-23); Calcium 9.3 mg/dL (8.5-10.1); Carbon Dioxide 25 mmol/L (20-30); Chloride 103 mmol/L (98-107); Glucose 126 mg/dL (74-106); Potassium 4.4 mmol/L (3.5-5.1); Sodium 138 mmol/L (136-145)
[2023-02-26 11:32] LABS: Bilirubin, Total 0.3 mg/dL (0.2-1.0); Total Protein 7.8 g/dL (5.7-8.2)
[2023-02-26] MEDS ORDERED: BACDST PO (13:37)
[2023-02-26] MEDS ORDERED: cefTRIAXone 1GM/50ML D5W 50 ML IV ONE (13:45)
[2023-02-26 19:40] VITALS: BP 112/68; PULSE 70; RESP 16; TEMP 98.8; O2SAT 98
== END 2023-02-26 19:56 | disposition home or self-care (01) ==
LOC: EDBD 10:50 → ER 10:50
DX: N39.0 Urinary tract infection, site not specified (principal); I10 Essential (primary) hypertension; I26.99 Other pulmonary embolism without acute cor pulmonale; Z85.9 Personal history of malignant neoplasm, unspecified; Z79.899 Other long term (current) drug therapy
CPT/HCPCS: 36415; 51702; 80053; 85025

== ENCOUNTER 2023-04-14 12:17 | Inpatient (IN) | payer MEDICARE, MEDICAID ==
[~2023-04-14] VITALS: Ht 149.9 cm; Wt 81.6 kg
[~2023-04-14 12:17] MED LIST changes: +BACDST PO
[2023-04-14 13:25] VITALS: PULSE 57; RESP 12; O2SAT 98
[2023-04-14] MEDS ORDERED: SODIUM CHLORIDE 0.9% 2,050 ML IV ONE (13:45)
[2023-04-14] MEDS ORDERED: VANCOMYCIN 1GM/200ML 200 ML IV ONE (13:45)
[2023-04-14 14:13] LABS: Basophils # (auto) 0.1 10 ^3/uL (0-0.2); Basophils % (auto) 1.5 % (0.0-2.0); Eosinophils # (auto) 0 10 ^3/uL (0-0.8); Eosinophils % (auto) 0.6 % (0.0-7.0); Hematocrit 38.9 % (41.0-53.0); Hemoglobin 12.9 g/dL (13.5-17.5); Lymphocytes # (auto) 1.4 10 ^3/uL (0.4-5.4); Lymphocytes % (auto) 38.9 % (10.0-50.0); Mean Corpuscular Volume 99.9 fL (80.0-100.0); Monocytes # (auto) 0.4 10 ^3/uL (0-1.3); Monocytes % (auto) 10.3 % (0.0-12.0); Neutrophils # (auto) 1.7 10 ^3/uL (1.6-8.6); Neutrophils % (auto) 48.7 % (37.0-80.0); Nucleated Red Blood Cells % 0.3 %; Red Cell Distribution Width 16.2 % (11.8-14.3); White Blood Cell 3.6 10^3/uL (4.4-10.8)
[2023-04-14 14:16] LABS: Urine Epithelial Cast None Seen /hpf (<5)
[2023-04-14 14:28] LABS: INR 1.06 (0.9-1.15); Prothrombin Time 11.1 sec (9.3-11.8)
[2023-04-14] MEDS ORDERED: SUCRALFATE 1 GM TAB PO ONE (14:30)
[2023-04-14 14:38] LABS: Urine Bacteria NONE SEEN /hpf (None Seen); Urine Blood 1+ /uL (Negative); Urine Budding Yeast FEW /hpf (None Seen); Urine Clarity HAZY (Clear); Urine Color Yellow (Yellow); Urine Mucus FEW (None Seen); Urine Protein, UAD 1+ (Negative); Urine Specific Gravity 1.024 (1.001-1.035); Urine Urobilinogen Normal (Negative); Urine WBC 87 /hpf (0 - 3); Urine pH 5.5 (5.0-8.0)
[2023-04-14 14:42] LABS: Alanine Aminotransferase 49 U/L (7-40); Albumin 4.1 g/dL (3.2-4.8); Alkaline Phosphatase 89 U/L (46-116); Anion Gap 7 (5-15); Aspartate Aminotransferase 22 U/L (13-40); BUN/Creatinine Ratio 14.3 (10.0-20.0); Bilirubin, Total 0.3 mg/dL (0.2-1.0); Blood Urea Nitrogen 11 mg/dL (9-23); Calcium 9.1 mg/dL (8.7-10.4); Carbon Dioxide 26 mmol/L (20-30); Chloride 104 mmol/L (98-107); Glucose 99 mg/dL (74-106); Potassium 3.9 mmol/L (3.5-5.1); Sodium 137 mmol/L (136-145)
[2023-04-14 14:43] LABS: Total Protein 7.7 g/dL (5.7-8.2)
[2023-04-14] MEDS ORDERED: CEFTRIAXONE SODIUM 2 GM in D5W 5% 100 ML IV ONE (15:30)
[2023-04-14] MEDS ORDERED: VANCOMYCIN PER PHARMACY 0 MG IV SCH (16:30)
[2023-04-14] MEDS ORDERED: MORPHINE SULFATE INJ 2 MG/ml SYRG IV PRN (16:30)
[2023-04-14] MEDS ORDERED: MENTHOL METHYL SALICYLATE TD SCH (16:30)
[2023-04-14] MEDS ORDERED: NITROGLYCERIN 0.4 MG SL TAB SL PRN (16:30)
[2023-04-14] MEDS ORDERED: BISACODYL 10 MG RECT SUPP PR PRN (16:30)
[2023-04-14] MEDS ORDERED: ACETAMINOPHEN 325 MG TAB PO PRN (16:30)
[2023-04-14] MEDS: SODIUM CHLORIDE 0.9% 1,000 ML IV SCH (17:20)
[2023-04-14 19:50] VITALS: PULSE 62; RESP 12; O2SAT 98
[2023-04-14] MEDS: ACETAMINOPHEN 325 MG TAB PO PRN (20:29)
[2023-04-14] MEDS: MIDODRINE HCL 10 MG TAB PO PRN (21:07)
[2023-04-14] MEDS: PANTOPRAZOLE 40 MG TAB PO SCH (22:26)
[2023-04-15] MEDS: VANCOMYCIN 1GM/200ML 200 ML IV SCH ×2 (02:00→14:00)
[2023-04-15] MEDS: SODIUM CHLORIDE 0.9% 1,000 ML IV SCH ×3 (02:30→22:35)
[2023-04-15] MEDS: ACETAMINOPHEN 325 MG TAB PO PRN ×3 (02:35→20:25)
[2023-04-15 07:49] LABS: Basophils # (auto) 0.1 10 ^3/uL (0-0.2); Basophils % (auto) 1.4 % (0.0-2.0); Eosinophils # (auto) 0.1 10 ^3/uL (0-0.8); Eosinophils % (auto) 1.3 % (0.0-7.0); Hematocrit 36.6 % (41.0-53.0); Hemoglobin 12.1 g/dL (13.5-17.5); Lymphocytes # (auto) 1.2 10 ^3/uL (0.4-5.4); Lymphocytes % (auto) 25.1 % (10.0-50.0); Monocytes # (auto) 0.4 10 ^3/uL (0-1.3); Neutrophils # (auto) 3.1 10 ^3/uL (1.6-8.6); Neutrophils % (auto) 64.2 % (37.0-80.0); Nucleated Red Blood Cells % 0.2 %; Red Blood Cells 3.66 10^6/uL (4.5-5.90); Red Cell Distribution Width 16.2 % (11.8-14.3); White Blood Cell 4.8 10^3/uL (4.4-10.8)
[2023-04-15 07:53] LABS: Alanine Aminotransferase 38 U/L (7-40); Albumin 3.6 g/dL (3.2-4.8); Alkaline Phosphatase 72 U/L (46-116); Anion Gap 8 (5-15); Aspartate Aminotransferase 17 U/L (13-40); BUN/Creatinine Ratio 12.8 (10.0-20.0); Blood Urea Nitrogen 14 mg/dL (9-23); Calcium 8.5 mg/dL (8.5-10.1); Carbon Dioxide 24 mmol/L (20-30); Chloride 109 mmol/L (98-107); Glucose 121 mg/dL (74-106); Potassium 3.9 mmol/L (3.5-5.1); Sodium 141 mmol/L (136-145)
[2023-04-15 07:54] LABS: Bilirubin, Total 0.2 mg/dL (0.2-1.0); Total Protein 6.5 g/dL (5.7-8.2)
[2023-04-15] MEDS: DOCUSATE ORAL LIQUID 100 MG/10 ML UD PO SCH (09:05)
[2023-04-15] MEDS: cefTRIAXone 1GM/50ML D5W 50 ML IV SCH (09:05)
[2023-04-15] MEDS: ENOXAPARIN SOD 40 MG/0.4 ML SYRINGE SC SCH (09:06)
[2023-04-15] MEDS: PANTOPRAZOLE 40 MG TAB PO SCH ×2 (09:06→22:32)
[2023-04-15] MEDS ORDERED: MIDODRINE HCL 10 MG TAB GT SCH (10:00)
[2023-04-15] MEDS: SUCRALFATE 1 GM TAB PO SCH ×2 (17:15→22:32)
[2023-04-15 20:00] VITALS: PULSE 79
[2023-04-15] MEDS ORDERED: SUCR1TAB22 OR (20:44)
[2023-04-16] VITALS (8 sets, daily range): BP systolic 86–110; BP diastolic 53–60; PULSE 69–83; RESP 17–18; TEMP 97.6–98.2; O2SAT 93–98
[2023-04-16] MEDS: VANCOMYCIN 1GM/200ML 200 ML IV SCH ×2 (01:39→14:28)
[2023-04-16] MEDS: ACETAMINOPHEN 325 MG TAB PO PRN ×2 (04:23→17:24)
[2023-04-16] MEDS: SUCRALFATE 1 GM TAB PO SCH ×4 (06:52→20:44)
[2023-04-16] MEDS: cefTRIAXone 1GM/50ML D5W 50 ML IV SCH (09:05)
[2023-04-16] MEDS: SODIUM CHLORIDE 0.9% 1,000 ML IV SCH ×2 (09:11→10:11)
[2023-04-16] MEDS: DOCUSATE ORAL LIQUID 100 MG/10 ML UD PO SCH (11:21)
[2023-04-16] MEDS: ENOXAPARIN SOD 40 MG/0.4 ML SYRINGE SC SCH (11:21)
[2023-04-16] MEDS: PANTOPRAZOLE 40 MG TAB PO SCH ×2 (11:21→20:44)
[2023-04-16] MEDS: MIDODRINE HCL 10 MG TAB PO PRN (12:37)
[2023-04-17] MEDS: ACETAMINOPHEN 325 MG TAB PO PRN ×2 (00:21→20:23)
[2023-04-17] MEDS: VANCOMYCIN 1GM/200ML 200 ML IV SCH ×2 (01:38→13:56)
[2023-04-17] MEDS: SODIUM CHLORIDE 0.9% 1,000 ML IV SCH ×2 (04:39→14:00)
[2023-04-17 04:47] VITALS: BP 101/49; PULSE 67; RESP 18; TEMP 97.5; O2SAT 94
[2023-04-17 05:13] LABS: Anion Gap 7 (5-15); Carbon Dioxide 24 mmol/L (20-30); Chloride 107 mmol/L (98-107); Potassium 4.2 mmol/L (3.5-5.1); Sodium 138 mmol/L (136-145)
[2023-04-17 05:14] LABS: Calcium 8.7 mg/dL (8.7-10.4)
[2023-04-17 05:19] LABS: BUN/Creatinine Ratio 16.5 (10.0-20.0); Blood Urea Nitrogen 13 mg/dL (9-23); Glucose 100 mg/dL (74-106)
[2023-04-17] MEDS: SUCRALFATE 1 GM TAB PO SCH ×4 (06:14→20:23)
[2023-04-17 08:00] VITALS: PULSE 71; RESP 18
[2023-04-17 09:25] VITALS: BP 120/64; PULSE 81; RESP 18; TEMP 97.5; O2SAT 99
[2023-04-17] MEDS: PANTOPRAZOLE 40 MG TAB PO SCH ×2 (09:38→20:24)
[2023-04-17] MEDS: cefTRIAXone 1GM/50ML D5W 50 ML IV SCH (09:38)
[2023-04-17] MEDS: ENOXAPARIN SOD 40 MG/0.4 ML SYRINGE SC SCH (09:38)
[2023-04-17] MEDS: DOCUSATE ORAL LIQUID 100 MG/10 ML UD PO SCH (09:45)
[2023-04-17] MEDS: DOCUSATE SOD 100 MG CAP PO SCH (13:56)
[2023-04-17 16:10] VITALS: BP 110/68; PULSE 81; RESP 17; TEMP 97.6; O2SAT 97
[2023-04-17 19:30] VITALS: PULSE 91; RESP 18
[2023-04-17] MEDS: MIDODRINE HCL 10 MG TAB PO PRN (20:24)
[2023-04-17 22:00] VITALS: BP 107/51; PULSE 66; RESP 18; TEMP 98; O2SAT 97
[2023-04-18] VITALS (8 sets, daily range): BP systolic 94–118; BP diastolic 52–71; PULSE 41–90; RESP 16–19; TEMP 98.1–98.6; O2SAT 95–99
[2023-04-18] MEDS: SODIUM CHLORIDE 0.9% 1,000 ML IV SCH ×3 (03:38→16:32)
[2023-04-18] MEDS: VANCOMYCIN 1GM/200ML 200 ML IV SCH ×2 (03:39→14:00)
[2023-04-18] MEDS: ACETAMINOPHEN 325 MG TAB PO PRN ×2 (03:47→17:21)
[2023-04-18] MEDS: SUCRALFATE 1 GM TAB PO SCH ×3 (06:40→16:32)
[2023-04-18] MEDS: PANTOPRAZOLE 40 MG TAB PO SCH (09:48)
[2023-04-18] MEDS: DOCUSATE SOD 100 MG CAP PO SCH (09:48)
[2023-04-18] MEDS: ENOXAPARIN SOD 40 MG/0.4 ML SYRINGE SC SCH (09:49)
[2023-04-18] MEDS: cefTRIAXone 1GM/50ML D5W 50 ML IV SCH (09:50)
[2023-04-18] MEDS ORDERED: MAALOX PLUS or MAALOX 30 ML PO PRN (16:00)
[2023-04-18] MEDS: MIDODRINE HCL 10 MG TAB PO PRN (17:05)
[2023-04-18] MEDS ORDERED: SODIUM CHLORIDE 0.9% 2,900 ML IV ONE (18:15)
[2023-04-19] VITALS (7 sets, daily range): BP systolic 98–113; BP diastolic 53–68; PULSE 59–94; RESP 16–17; TEMP 97.8–98.2; O2SAT 94–97
[2023-04-19] MEDS: PANTOPRAZOLE 40 MG TAB PO SCH ×3 (00:05→21:31)
[2023-04-19] MEDS: SUCRALFATE 1 GM TAB PO SCH ×5 (00:05→21:31)
[2023-04-19] MEDS: MIDODRINE HCL 10 MG TAB PO PRN ×2 (06:27→18:28)
[2023-04-19] MEDS: SODIUM CHLORIDE 0.9% 1,000 ML IV SCH ×2 (06:27→16:30)
[2023-04-19] MEDS: VANCOMYCIN 1GM/200ML 200 ML IV SCH (06:28)
[2023-04-19] MEDS: DOCUSATE SOD 100 MG CAP PO SCH (09:14)
[2023-04-19] MEDS: ENOXAPARIN SOD 40 MG/0.4 ML SYRINGE SC SCH (09:14)
[2023-04-19] MEDS: cefTRIAXone 1GM/50ML D5W 50 ML IV SCH (09:14)
[2023-04-19] MEDS: ACETAMINOPHEN 325 MG TAB PO PRN ×2 (14:44→22:38)
[2023-04-19 14:54] LABS: INR 1.03 (0.9-1.15); Partial Thromboplastin Time 32.2 SEC (24.5-34.5); Prothrombin Time 10.8 sec (9.3-11.8)
[2023-04-19 15:05] LABS: COVID19 ANTIGEN SOFIA FIA NEGATIVE (NEGATIVE)
[2023-04-19] MEDS ORDERED: LIDOCAINE 1% (LOCAL ANESTH.) PF 5ml SDV ID ONE (18:45)
[2023-04-19] MEDS: SODIUM CHLOR 0.9% PF (SALINE LOCK) 10ML VIAL/SYR IV SCH (21:34)
[2023-04-20] MEDS: SODIUM CHLORIDE 0.9% 1,000 ML IV SCH ×2 (02:30→12:31)
[2023-04-20] MEDS: VANCOMYCIN 1GM/200ML 200 ML IV SCH (04:48)
[2023-04-20 05:00] VITALS: BP 111/63; PULSE 66; RESP 17; TEMP 98.1; O2SAT 95
[2023-04-20] MEDS: SUCRALFATE 1 GM TAB PO SCH ×3 (05:56→17:13)
[2023-04-20 06:59] LABS: Chloride 107 mmol/L (98-107); Potassium 4.6 mmol/L (3.5-5.1); Sodium 137 mmol/L (136-145)
[2023-04-20 07:00] LABS: Anion Gap 8 (5-15); Calcium 8.9 mg/dL (8.7-10.4); Carbon Dioxide 22 mmol/L (20-30)
[2023-04-20 07:05] LABS: Basophils # (auto) 0.1 10 ^3/uL (0-0.2); Basophils % (auto) 1.5 % (0.0-2.0); Eosinophils # (auto) 0.1 10 ^3/uL (0-0.8); Eosinophils % (auto) 1.8 % (0.0-7.0); Glucose 98 mg/dL (74-106); Hematocrit 36.5 % (41.0-53.0); Hemoglobin 11.8 g/dL (13.5-17.5); Lymphocytes # (auto) 1.7 10 ^3/uL (0.4-5.4); Lymphocytes % (auto) 31.9 % (10.0-50.0); Mean Corpuscular Hemoglobin 32.7 pg (28.0-32.0); Mean Corpuscular Hgb Conc. 32.4 g/dL (32.0-36.0); Mean Corpuscular Volume 101.1 fL (80.0-100.0); Monocytes # (auto) 0.5 10 ^3/uL (0-1.3); Neutrophils # (auto) 2.9 10 ^3/uL (1.6-8.6); Neutrophils % (auto) 54.8 % (37.0-80.0); Nucleated Red Blood Cells % 0.2 %; Red Blood Cells 3.61 10^6/uL (4.5-5.90); Red Cell Distribution Width 16.6 % (11.8-14.3); White Blood Cell 5.2 10^3/uL (4.4-10.8)
[2023-04-20 07:06] LABS: BUN/Creatinine Ratio 21.1 (10.0-20.0); Blood Urea Nitrogen 16 mg/dL (9-23)
[2023-04-20 08:00] VITALS: BP 88/53; PULSE 67; PULSE 68; PULSE 97; RESP 15; TEMP 98.3; O2SAT 97
[2023-04-20] MEDS: cefTRIAXone 1GM/50ML D5W 50 ML IV SCH (08:21)
[2023-04-20 09:12] VITALS: BP 88/53; PULSE 68; RESP 15; TEMP 98.3; O2SAT 97
[2023-04-20] MEDS: PANTOPRAZOLE 40 MG TAB PO SCH (09:12)
[2023-04-20] MEDS: DOCUSATE SOD 100 MG CAP PO SCH (09:12)
[2023-04-20] MEDS: ENOXAPARIN SOD 40 MG/0.4 ML SYRINGE SC SCH (09:12)
[2023-04-20] MEDS: SODIUM CHLOR 0.9% PF (SALINE LOCK) 10ML VIAL/SYR IV SCH (09:12)
[2023-04-20 12:32] VITALS: BP 95/56; PULSE 71; RESP 15; TEMP 98; O2SAT 97
[2023-04-20 16:31] VITALS: BP 95/56; PULSE 71; RESP 17; TEMP 36.7; O2SAT 97
[2023-04-20 17:13] VITALS: BP 99/54; PULSE 82; RESP 15; TEMP 98.2; O2SAT 97
[2023-04-20] MEDS: ACETAMINOPHEN 325 MG TAB PO PRN (19:34)
== END 2023-04-20 19:00 | DRG 698 ==
LOC: ER 12:17 → EDBD 12:17 → TELE 16:24 → TELE-CENTR 04-15 18:37
PROVIDERS: ADMIT Nurse Practitioner Family; ATTEND Family Medicine
PROC: 02HV33Z Insertion of Infusion Device into Superior Vena Cava, Percutaneous Approach (ICD-10-PCS; principal; 2023-04-19)
PROC: B548ZZA Ultrasonography of Superior Vena Cava, Guidance (ICD-10-PCS; 2023-04-19)
DX: T83.518A Infection and inflammatory reaction due to other urinary catheter, initial encounter (principal); A41.02 Sepsis due to Methicillin resistant Staphylococcus aureus; G82.50 Quadriplegia, unspecified; N30.00 Acute cystitis without hematuria; D72.819 Decreased white blood cell count, unspecified; I10 Essential (primary) hypertension; I95.89 Other hypotension; K21.9 Gastro-esophageal reflux disease without esophagitis; Q90.9 Down syndrome, unspecified; Z86.711 Personal history of pulmonary embolism; Z87.440 Personal history of urinary (tract) infections; Z91.048 Other nonmedicinal substance allergy status; Z74.01 Bed confinement status; Z20.822 Contact with and (suspected) exposure to COVID-19
CPT/HCPCS: 36415; 36569; 71045; 80048; 80053; 80202; 81001; 82565; 83605; 85025; 85610; 85730; 87040; 87086; 87426; 96365; 96366; 96367; G0378; J0696; J7060

== ENCOUNTER 2024-05-24 23:18 | Emergency (ER) | payer MEDICARE, MEDICAID ==
[~2024-05-24] VITALS: Ht 152.4 cm; Wt 63.0 kg
[~2024-05-24 23:18] MED LIST changes: -BACDST PO; +SUCR1TAB31 OR; -[UNRECOGNIZED DRUG - CODE] EX
--- NOTE | 2024-05-24 23:59 | ED.PDOC ---
History of Present Illness HPI Comments 43-year-old male who came to ER via EMS due to urinary issues. Patient is bed- bound, and has a indwelling Shafer catheter. Family called EMS to have the Shafer catheter bag for placed due to occlusive concerns. Once the new catheter was installed, it was noted that the urine output the the urine bag appears minimal, with cloudy sediments. Noted also lower abdominal distention. Patient was mildly hypotensive on arrival. Chief Complaint: Urinary Time Seen by MD: 23:59 Primary Care Provider: FERNANDO Reviewed Notes: Nurses Notes, Perl Programmer Notes Allergies: Uncoded Allergies: tape (Allergy, Mild, redness, itching, fluid blisters, 10/09/22) tegaderm Home Meds Active Scripts Pantoprazole Sodium Sesquihydr (Pantoprazole Sodium) 40 Mg Tab, 40 MG PO BID, #60 TAB Prov:NELSY CESPEDES MD 10/12/22 Reported Medications Sucralfate (CARAFATE) 1 Gm Tab, 1 GM OR, TAB 04/15/23 Midodrine HCl (Midodrine HCl) 10 Mg Tab, 10 MG GT, TAB 12/16/22 Bisacodyl (Bisacodyl Laxative) 10 Mg Sup, 10 MG AR HSPRN PRN for CONSTIPATION, SUPP 09/27/21 Acetaminophen W/ Codeine (Acetaminophen/Codeine) 1 Tab Tab, 1 TAB PO Q6HPRN PRN for PAIN SCALE 7 THRU 10, TAB 09/25/21 Enoxaparin Sodium (Lovenox) 100 Mg/1 Ml Inj, 100 MG SC DAILY, INJ 09/25/21 Acetaminophen (Acetaminophen) 325 Mg Tab, 550 MG PO Q4HPRN PRN for MILD PAIN for 30 Days, MG 0 Refills 09/25/21 Docusate Sodium (Docusate Sodium) 250 Mg Cap, 250 MG PO DAILY, CAP 09/25/21 Pantoprazole Sodium Sesquihydr (Protonix) 40 Mg Tab, 40 MG PO BID, #30 TAB 09/25/21 Information Source: Patient, Relative (Mother), Emergency Med Personnel Mode of Arrival: EMS Severity: Moderate Timing: Hours Duration: Since onset Prehospital treatment: None Past Medical History PAST MEDICAL HISTORY: Cancer, HTN, PE, UTI'S Past Medical History (Other): Bed-bound with a long-term indwelling catheter. Surgical History: Unknown Family History Family History: Reviewed,noncontributory to illness Social History Smoker: Non-Smoker Alcohol: Denies ETOH Use Drugs: Denies Drug Use Lives In: Home Constitutional: denies: chills, diaphoresis, fatigue, fever, malaise, sweats, weakness, others EENTM: denies: blurred vision, double vision, ear bleeding, ear discharge, ear drainage, ear pain, ear ringing, eye pain, eye redness, hearing loss, mouth pain, mouth swelling, nasal discharge, nose bleeding, nose congestion, nose pain, photophobia, tearing, throat pain, throat swelling, voice changes, others Respiratory: denies: cough, hemoptysis, orthopnea, SOB at rest, shortness of breath, SOB with excertion, stridor, wheezing, others Cardiovascular: denies: chest pain, dizzy spells, diaphoresis, Dyspnea on exertion, edema, irregular heart beat, left arm pain, lightheadedness, palpitations, PND, syncope, others Gastrointestinal: reports: abdomen distended; denies: abdominal pain, blood streaked bowels, constipated, diarrhea, dysphagia, difficulty swallowing, hematemesis, melena, nausea, poor appetite, poor fluid intake, rectal bleeding, rectal pain, vomiting, others Genitourinary: denies: burning, dysuria, flank pain, frequency, hematuria, incontinence, penile discharge, penile sore, pain, testicle pain, testicle swelling, urgency, others Neurological: denies: dizziness, fainting, headache, left sided numbness, left sided weakness, numbness, paresthesia, pre-existing deficit, right sided numbness, right sided weakness, seizure, speech problems, tingling, tremors, weakness, others Musculoskeletal: denies: back pain, gout, joint pain, joint swelling, muscle pain, muscle stiffness, neck pain, others Integumetry: denies: bruises, change in color, change in hair/nails, dryness, laceration, lesions, lumps, rash, wounds, others Allergic/Immunocompromised: denies: Difficulty Healing, Frequent Infections, Hives, Itching, others Hematologic/Lymphatic: denies: anemia, blood clots, easy bleeding, easy bruising, swollen glands, others Endocrine: denies: excessive hunger, excessive sweating, excessive thirst, excessive urination, flushing, intolerance to cold, intolerance to heat, unexplained weight gain, unexplained weight loss, others Psychiatric: denies: anxiety, bipolar disorder, depression, hopeless, panic disorder, schizophrenia, sleepless, suicidal, others Physical Exam General Appearance: No Apparent Distress (Patient does not appear to be in distress at time of evaluation. This could be due to his disability. Patient does not appear to be experiencing any pain.), Normal HEENT: Normal ENT Inspection, Pharynx Normal, TMs Normal Neck: Full Range of Motion, Non-Tender, Normal, Normal Inspection Respiratory: Chest Non-Tender, Lungs Clear, No Accessory Muscle Use, No Respiratory Distress, Normal Breath Sounds Cardiovascular: No Edema, No JVD, No Murmur, No Gallop, Normal Peripheral Pulses, Regular Rate/Rhythm Breast Exam: Deferred Gastrointestinal: No Pulsatile Mass, Normal Bowel Sounds, Soft, Other (Patient's abdomen may be slightly distended, but hard to assess as it may be his standard body habitus.) Genitalia: Deferred Pelvic: Deferred Rectal: Deferred Extremities: No calf tenderness, Normal capillary refill, No pedal edema Musculoskeletal : Apperance: Normal Neurologic: Alert, No Motor Deficits, Normal Mood, No Sensory Deficits Cerebellar Function: NOT DONE Reflexes: NOT DONE Skin: Dry, Normal Color, Warm Lymphatic: No Adenopathy Was a procedure done? Was a procedure done?: No Differential Dx Considerations may include: Urinary tract infection, pyelonephritis, malfunctioning Shafer catheter X-Ray, Labs, Meds, VS Vital Signs Date Time Temp Pulse Resp B/P (MAP) Pulse Ox O2 Delivery O2 Flow Rate FiO2 05/24/24 23:18 98.7 72 16 102/53 (69) 94 Lab Test 05/25/24 01:46 Range/Units Urine Color Pending Urine Clarity Pending Urine pH Pending Urine Specific [place] Pending Urine Protein Pending Urine Ketones Pending Urine Blood Pending Urine Nitrite Pending Urine Bilirubin Pending Urine Urobilinogen Pending Urine Leukocyte Esterase Pending Urine RBC Pending Urine Microscopic WBC Pending Urine Squamous Epithelial Cells Pending Urine Bacteria Pending Urine Glucose Pending X-Ray, Labs, Meds, VS Comment Urinalysis was pending at time of this note. Patient care will be transferred to Dr. Licona for evaluation of the urine when returned. Once evaluated, he will respond accordingly. Time of 1ST Reevaluation: 02:02 Reevaluation 1ST: Improved Consultation: PCP Patient Education/Counseling: Diagnosis, Treatment Family Education/Counseling: Diagnosis, Treatment, No Family Present Departure 1 Departure Time of Disposition: 02:03 Impression: Primary Impression: Encounter for Shafer catheter replacement Disposition: 30 STILL A PATIENT Condition: Stable Additional Instructions: Continue follow up with the primary care provider for long-term management. Discharged With: Self, Relative (Mother) Critical Care Note Critical Care Time?: No Stability Stability form required: No Heart Score Heart Score: Heart Score Response (Comments) Value History N/A 0 EKG N/A 0 Age N/A 0 Risk Factors N/A 0 Troponin N/A 0 Total 0 I personally scribed for MIKE CRAIN PAC ([email or web address]) on 05/24/24 at 23:59. Electronically submitted by Kashif Alvarado ([email or web address]). MIKE CRAIN PAC May 24, 2024 23:59
[2024-05-25 01:56] LABS: Urine Bacteria None Seen /hpf (None Seen)
[2024-05-25] MEDS: ACETAMINOPHEN 325 MG TAB PO ONE ×2 (02:00)
[2024-05-25 03:21] LABS: Urine Blood 2+ /uL (Negative); Urine Clarity Turbid (Clear); Urine Color Yellow (Yellow); Urine Hyaline Cast FEW /lpf (0 - 2); Urine Mucus FEW (None Seen); Urine Protein, UAD 2+ (Negative); Urine Specific Gravity 1.032 (1.001-1.035); Urine Squamous Epithelial Cell FEW /hpf (<5); Urine Urobilinogen 2 mg/dL (Negative); Urine WBC 154 /HPF (0-3)
[2024-05-25] MEDS ORDERED: CEFD300C2 PO (03:30)
--- NOTE | 2024-05-25 03:31 | ED.PDOC ---
Departure 1 Departure Time of Disposition: 03:29 (Patient's catheter was replaced. Patient has a lot of debris and white cells in his urine. We will empirically cover patient with antibiotics and have him follow up as an outpatient.) Impression: Primary Impression: Encounter for Shafer catheter replacement Additional Impression: UTI (urinary tract infection) Qualified Codes: T83.511A - Infection and inflammatory reaction due to indwelling urethral catheter, initial encounter; N39.0 - Urinary tract infection, site not specified Disposition: HOME / SELF CARE / HOMELESS Condition: Stable Additional Instructions: Continue follow up with the primary care provider for long-term management. e-Prescriptions Cefdinir (Cefdinir) 300 Mg Cap 1 CAP PO BID for 7 Days, #14 CAP Prov: KELSEY RAVI MD 05/25/24 Discharged With: Self, Relative (Mother) KELSEY RAVI MD May 25, 2024 03:31
[2024-05-25] MEDS: SODIUM CHLORIDE 0.9% 1,000 ML IV ONE (03:33)
[2024-05-25 03:42] VITALS: TEMP 98.4
[2024-05-25] MEDS: cefTRIAXone 1GM/50ML D5W 50 ML IV ONE (03:43)
[2024-05-25] MEDS: METOCLOPRAMIDE HCL 5MG/ml INJ 2ml VIAL IV ONE (04:39)
[2024-05-25 05:24] VITALS: BP 100/53; PULSE 87; RESP 14; O2SAT 95
== END 2024-05-25 08:37 | disposition home or self-care (01) ==
LOC: EDBD 23:18 → EDUNIT# 23:18 → ER 23:18
DX: T83.098A Other mechanical complication of other urinary catheter, initial encounter (principal); N39.0 Urinary tract infection, site not specified; I10 Essential (primary) hypertension; Z46.6 Encounter for fitting and adjustment of urinary device; Z85.9 Personal history of malignant neoplasm, unspecified; Z79.899 Other long term (current) drug therapy; Y92.89 Other specified places as the place of occurrence of the external cause
CPT/HCPCS: 51702; 81001; 96365; 96375; 99284; J0696; J2765